=== PATIENT | female | born 1965 | race Caucasian/White ===

== ENCOUNTER 2018-04-25 11:11 | Day surgery (SDC) | payer OTHER ==
[~2018-04-25] VITALS: Ht 162.6 cm; Wt 79.7 kg
[~2018-04-25 11:11] MED LIST: ATOR1TAB21 PO; HYDR12CA PO; IBUPOTC PO; LIDOCAINE 2% INJ 100 MG/5 ML SDV (FOR ANES.) As Ordered ONE; LISI-538 PO; METF500T4 PO; OMEP40CA2 PO; PROPOFOL 200 MG/20 ML VIAL As Ordered ONE; ROPI1TAB PO
[2018-04-25] MEDS ORDERED: NS 1,000 ML IV ONE (11:45)
--- NOTE | 2018-04-25 12:22 | ROOR ---
Patient Name: Valeria Booth Procedure Date: 04/25/2018 12:07 PM Date of : 1965 Age: 53 Room: [facility] Gender: Female Note Status: Finalized Procedure: Upper GI endoscopy Indications: Heartburn, Nausea Providers: Hernan GARCIA MD Referring MD: DIOGENES SHETTY MD Requesting Provider: Medicines: Monitored Anesthesia Care Complications: No immediate complications. Procedure: Pre-Anesthesia Assessment: - The heart rate, respiratory rate, oxygen saturations, blood pressure, adequacy of pulmonary ventilation, and response to care were monitored throughout the procedure. The Endoscope was introduced through the mouth, and advanced to the third part of duodenum. The upper GI endoscopy was accomplished without difficulty. The patient tolerated the procedure well. Findings: The examined esophagus was normal. A small hiatal hernia was present. The entire examined stomach was normal. (large volume/compliant). The examined duodenum was normal. Impression: - Normal esophagus. - Normal stomach. Small hiatal hernia. - Normal examined duodenum. - No specimens collected. Recommendation: - Continue present medications. Hernan Garcia MD Hernan GARCIA MD 04/25/2018 12:22:03 PM This report has been signed electronically. Number of Addenda: 0 Note Initiated On: 04/25/2018 12:07 PM Estimated Blood Loss: Estimated blood loss: none.
--- NOTE | 2018-04-25 12:36 | ROOR ---
Patient Name: Valeria Booth Procedure Date: 04/25/2018 12:08 PM Date of : 1965 Age: 53 Room: [id number] Gender: Female Note Status: Finalized Procedure: Colonoscopy Indications: High risk colon cancer surveillance: Personal history of colonic polyps, Last colonoscopy: August 2014 Providers: Hernan GARCIA MD Referring MD: DIOGENES SHETTY MD Requesting Provider: Medicines: Monitored Anesthesia Care Complications: No immediate complications. Procedure: Pre-Anesthesia Assessment: - The heart rate, respiratory rate, oxygen saturations, blood pressure, adequacy of pulmonary ventilation, and response to care were monitored throughout the procedure. The Colonoscope was introduced through the anus and advanced to the cecum, identified by appendiceal orifice and ileocecal valve. The colonoscopy was performed without difficulty. The patient tolerated the procedure well. The quality of the bowel preparation was good. Findings: The perianal and digital rectal examinations were normal. Small Internal Hemorrhoids. The entire examined colon appeared normal on direct and retroflexion views. Impression: - Small Internal Hemorrhoids. - The entire examined colon is normal on direct and retroflexion views. - No specimens collected. Recommendation: - Repeat colonoscopy in 5 years for surveillance based on personal history of previous adenomatous polyps. Hernan Garcia MD Hernan GARCIA MD 04/25/2018 12:35:50 PM This report has been signed electronically. Number of Addenda: 0 Note Initiated On: 04/25/2018 12:08 PM Estimated Blood Loss: Estimated blood loss: none.
[2018-04-25 12:56] VITALS: BP 129/73
== END 2018-04-25 13:06 | disposition home or self-care (01) ==
LOC: M OPP 11:11
PROVIDERS: ATTEND Internal Medicine Gastroenterology
DX: Z86.010 Personal history of colon polyps (principal); K64.8 Other hemorrhoids; R12 Heartburn; R11.2 Nausea with vomiting, unspecified; K44.9 Diaphragmatic hernia without obstruction or gangrene; E11.9 Type 2 diabetes mellitus without complications; G47.30 Sleep apnea, unspecified; G43.909 Migraine, unspecified, not intractable, without status migrainosus; M79.7 Fibromyalgia; G89.29 Other chronic pain; I10 Essential (primary) hypertension; Z79.84 Long term (current) use of oral hypoglycemic drugs; Z79.899 Other long term (current) drug therapy; Z87.891 Personal history of nicotine dependence
CPT/HCPCS: 43235; G0105

== ENCOUNTER 2018-05-11 12:45 | Emergency (ER) | payer OTHER ==
[~2018-05-11] VITALS: Ht 162.6 cm; Wt 81.8 kg
[~2018-05-11 12:45] MED LIST changes: -LIDOCAINE 2% INJ 100 MG/5 ML SDV (FOR ANES.) As Ordered ONE; -PROPOFOL 200 MG/20 ML VIAL As Ordered ONE
[2018-05-11] MEDS: MORPHINE 4 MG/ML 1ML VIAL/SYRINGE (J2270) IV PRN ×2 (13:21→14:22)
--- NOTE | 2018-05-11 13:38 | REP ---
Clinical: Trauma. Technique: AP and lateral views of the left humerus. Findings: There is a transverse displaced fracture through the mid humeral shaft with approximately 15 mm of displacement and mild angulation at the fracture site. Overlying soft tissue swelling noted. No subcutaneous emphysema or foreign body. Impression: Transverse displaced fracture through the mid humeral shaft. Electronically Signed by Tanner Weir MD 05/11/2018 01:30 P
[2018-05-11] MEDS ORDERED: NORCOTAB PO (15:47)
[2018-05-11 16:05] VITALS: BP 128/60
[2018-05-11] MEDS ORDERED: NORCO, ANEXSIA 5/325MG TABLET (HYDROcodone/ACETAMINOPHEN) PO ONE (16:15)
== END 2018-05-11 16:18 | disposition home or self-care (01) ==
LOC: M ED 12:45 → EDBD 12:45 → M ED 16:18
DX: S42.322A Displaced transverse fracture of shaft of humerus, left arm, initial encounter for closed fracture (principal); W00.0XXA Fall on same level due to ice and snow, initial encounter; Y92.096 Garden or yard of other non-institutional residence as the place of occurrence of the external cause; I10 Essential (primary) hypertension; E11.9 Type 2 diabetes mellitus without complications; G25.81 Restless legs syndrome; F41.9 Anxiety disorder, unspecified; Z79.899 Other long term (current) drug therapy; Z79.84 Long term (current) use of oral hypoglycemic drugs; Z79.1 Long term (current) use of non-steroidal anti-inflammatories (NSAID)
CPT/HCPCS: 29105; 73060; 96374; 96376; 99284; J2270

== ENCOUNTER → 2020-05-17 | Outpatient (CLI) | payer OTHER ==
[~2020-05-17] MED LIST changes: +HYDR-3715 PO; +METF-838 PO; -METF500T4 PO; -OMEP40CA2 PO; +OMEP40CA97 PO; -ROPI1TAB PO; +ROPI1TAB3 PO
--- NOTE | 2020-05-20 00:17 | ECWPNPC ---
PATIENT NAME: DAVID STANLEY : 1965 GENDER: FEMALE VISIT DATE: 05/17/2020 DISCHARGE DATE: 05/17/20915 VISIT LOCKED DATE TIME: PHYSICIAN: BRYSON CARRERO RESOURCE: BRYSON CARRERO REASON FOR APPOINTMENT 1. RIGHT HIP AND LOWER BACK HISTORY OF PRESENT ILLNESS DEPRESSION SCREENING: PHQ-2 (2015 EDITION) LITTLE INTEREST OR PLEASURE IN DOING THINGS?NOT AT ALL FEELING DOWN, DEPRESSED, OR HOPELESS?NOT AT ALL TOTAL SCORE0 GENERAL: PLEASANT 55-YEAR-OLD FEMALE REFERRED BY [facility] TO EVALUATE CHRONIC LOW BACK PAIN. FELL ON ICE 2 YEARS AGO AND HAS HAD LOW BACK PAIN AND BILATERAL LEG PAIN RIGHT GREATER THAN LEFT SINCE INJURY. ATTENDED PHYSICAL THERAPY FOR 6 MONTHS WHICH ENDED A FEW MONTHS AGO AND PATIENT FOUND IT VERY HELPFUL BUT CONTINUES TO SUFFER WITH PAIN. DENIES BOWEL OR BLADDER INCONTINENCE. DENIES SADDLE PARESTHESIAS. ATTENDED PHYSICAL THERAPY WHICH ENDED IN MARCH 2020 AND PATIENT REPORT SOME SHORT-LIVED IMPROVEMENT. - - -. FALL RISK SCREENING: SCREENING :NO FALLS REPORTED IN THE LAST YEAR PAIN SCREENING: PATIENT HAS A COMPLAINT OF ACUTE OR CHRONIC PAIN :YES LOCATION OF PAIN:MID BACK, LOW BACK, LEFT HIP, RIGHT HIP INTENSITY OF PAIN (SCALE OF 1 TO 10):6 WHAT DOES YOUR PAIN FEEL LIKE:SHARP, TENDER, SORE NUMBNESS DURATION:CONTINOUS, CONSTANT, ALL DAY PAIN IS INCREASED BY:PROLONGED STANDING, OTHERS LAYING ON BACK , STANDING OR SITTING TOO LONG PAIN IS DECREASED BY:OTHERS HEAT AND ICE NURSING NOTE: - - -. PAIN CENTER INTAKE QUESTIONS: DO YOU HAVE A HISTORY OF MRSA? :NO DO YOU TAKE A BLOOD THINNERS? :NO DO YOU HAVE ANY BLEEDING DISORDERS? :NO ANY NEW NUMBNESS OR WEAKNESS IN YOUR LEGS OR ARMS? :NO ANY PACEMAKER,DEFIBRILLATOR, OR DORSAL COLUMN STIMULATOR? :NO DO YOU HAVE ANY RASHES OR OPEN SORES? :NO ARE YOU ALLERGIC TO IV DYE? :NO ARE YOU DIABETIC? :NO ANY NEW PROBLEMS WITH YOUR MEDICATIONS? :NO HAVE YOU RECEIVED A VACCINE IN THE PAST 30 DAYS? :NO DO YOU PLAN TO RECEIVE A VACCINE IN THE NEXT 21 DAYS? :NO DO YOU NEED ANY PRESCRIPTION? :NO DO YOU TAKE ANY IMMUNOSUPPRESSIVE MEDICATIONS? :NO CURRENT MEDICATIONS TAKING ACETAMINOPHEN 325 MG CAPSULE 1 CAPSULE NEEDED ORALLY EVERY 6 HRS TAKING AMLODIPINE BESYLATE 10 MG TABLET 1 TABLET ORALLY ONCE A DAY TAKING BUSPIRONE HCL 10 MG TABLET 1 TABLET ORALLY TWICE A DAY TAKING HYDROCODONE-ACETAMINOPHEN 5-325 MG TABLET 1 TABLET NEEDED ORALLY EVERY 6 HRS TAKING IBUPROFEN 200 MG TABLET 1 TABLET WITH FOOD OR MILK NEEDED ORALLY THREE TIMES A DAY TAKING LISINOPRIL 20 MG TABLET 1 TABLET ORALLY ONCE A DAY TAKING TIZANIDINE HCL 2 MG TABLET 1 TABLET NEEDED ORALLY THREE TIMES A DAY TAKING VOLTAREN 1 % GEL DIRECTED EXTERNALLY TAKING LIDOCAINE 5 % PATCH 1 PATCH REMOVE AFTER 12 HOURS EXTERNALLY ONCE A DAY TAKING DICLOFENAC 18 MG CAPSULE 1 CAPSULE NEEDED ORALLY THREE TIMES A DAY NOT-TAKING ATORVASTATIN CALCIUM 20 MG TABLET 1 TABLET ORALLY ONCE A DAY UNKNOWN OMEPRAZOLE 40 MG CAPSULE DELAYED RELEASE ORALLY UNKNOWN ROPINIROLE HCL 1 MG TABLET ORALLY UNKNOWN KEFLEX 500 MG CAPSULE 1 CAPSULE ORALLY EVERY 12 HRS MEDICATION LIST REVIEWED AND RECONCILED WITH THE PATIENT PAST MEDICAL HISTORY ANXIETY ARTHRITIS GERD HYPERLIPIDEMIA HYPERTENSION LOW BACK PAIN NEUROMUSCULAR DISORDEER HEADACHE ALLERGIES N.K.D.A. SURGICAL HISTORY ABLASION SECTION 3 SHOULDER ARTHROSCOPY FAMILY HISTORY FATHER: , DIAGNOSED WITH DIABETES, OTHER SPECIFIED CONDITIONS INFLUENCING HEALTH STATUS MOTHER: , DIABETES SON(S): ALIVE 3 SON(S) - HEALTHY. SOCIAL HISTORY GENERAL: TOBACCO USE ARE YOU A:NONSMOKER LATEX QUESTIONNAIRE LATEX ALLERGY : HAVE YOU EVER DEVELOPED ANY TYPE OF REACTION AFTER HANDLING LATEX PRODUCTS SUCH RUBBER GLOVES, CONDOMS, DIAPHRAGMS, BALLOONS, SOCKS, OR UNDERWEAR?NO LATEX ALLERGY : HAVE YOU EVER DEVELOPED ANY TYPE OF REACTION DURING OR AFTER DENTAL APPOINTMENT, VAGINAL/RECTAL EXAMINATION, SURGICAL PROCEDURE, OR ANY OTHER EXPOSURE?NO LATEX RISK : HAVE YOU EVER HAD ANY DIFFICULTY BREATHING OR HIVES AFTER EATING OR HANDLING ANY FRUITS, OR VEGETABLES; SUCH KIWI, BANANAS, STONE FRUITS, OR CHESTNUTSNO LATEX RISK : DO YOU HAVE A PREVIOUS PERSONAL HISTORY OF MORE THAN NINE SURGERIES, SPINA BIFIDA, OR REPEATED CATHERIZATIONS? NO LATEX RISK : ARE YOU FREQUENTLY EXPOSED TO LATEX PRODUCTS IN YOUR OCCUPATION?NO DATE ASKED : 05/17/2020 ALCOHOL USE: YES. ALCOHOL SCREENING DID YOU HAVE A DRINK CONTAINING ALCOHOL IN THE PAST YEAR?YES HOW MANY DRINKS DID YOU HAVE ON A TYPICAL DAY WHEN YOU WERE DRINKING IN THE PAST YEAR?3 OR 4 (1 POINT) HOW OFTEN DID YOU HAVE A DRINK CONTAINING ALCOHOL IN THE PAST YEAR?MONTHLY OR LESS (1 POINT) POINTS2 INTERPRETATIONNEGATIVE RECREATIONAL DRUG USE DRUG USE?NO LEARNING BARRIERS / SPECIAL NEEDS CHANGE FROM LAST VISIT?NO BARRIERS TO LEARNING?NO HEARING IMPAIRED?NO VISION IMPAIRED?YES :CORRECTIVE LENSES COGNITIVELY IMPAIRED?NO READINESS TO LEARN?YES LEARNING PREFERENCES?NO LEARNING CAPABILITIES PRESENT?YES EMOTIONAL BARRIERS?NO SPECIAL DEVICES?YES :CANE, WALKER NEEDED CLINICAL LAB CLERK NEEDED?NO HOSPITALIZATION/MAJOR DIAGNOSTIC PROCEDURE SEE ABOVE REVIEW OF SYSTEMS CONSTITUTIONAL: ANY RECENT FEVER NO . CHILLS NO . WEIGHT CHANGE OF UNKNOWN REASONS NO . MUSCULOSKELETAL: ANY UNUSUAL JOINT PAIN OR SWELLING NOT MENTIONED NO . SYSTEMIC LUPUS NO . ANY NEUROMUSCULAR DISORDER NOT MENTIONED NO . LYME DISEASE NO . GASTROENTEROLOGY: ANY NEW CHANGE IN BOWEL CONTROL? NO . HISTORY OF LIVER DISORDER NOT MENTIONED NO . HISTORY OF UNUSUAL ABDOMINAL PAIN OR CRAMPING NOT MENTIONED NO . NO CONSTIPATION. GENITOURINARY: ANY NEW CHANGE IN BLADDER CONTROL? NO . ANY RENAL/KIDNEY CONDITON NOT MENTIONED NO . NEUROLOGY: HISTORY OF TBI NOT MENTIONED NO . OTHER NEW NUMBNESS OR PAIN PATTERNS NOT MENTIONED NO . NEW ONSET DIZZINESS OR NEUROLOGICAL CHANGES NOT MENTIONED NO . HISTORY OF SEVERE HEADACHES NOT MENTIONED NO . HISTORY OF STROKE OR NEUROLOGICAL DISORDER NOT MENTIONED NO . CARDIOLOGY: HEART SURGERY NO . CONGESTIVE HEART FAILURE/FLUID OVERLOAD NOT MENTIONED NO . HISTORY OF CHEST PAIN,IRREGULAR HEART BEAT NOT MENTIONED NO . RESPIRATORY: SHORTNESS OF BREATH ON EXERTION, WHEEZES, UNUSUAL COUGH NOT MENTIONED NO . ENDOCRINOLOGY: ADRENAL GLAND OR THYROID DISORDERS NOT MENTIONED NO . UNUSUAL URINATION, DIZZINESS OR LETHARGY NOT MENTIONED NO . VITAL SIGNS WT 185 LBS, HT 64 IN, BMI 31.75 INDEX, BP 136/73 MM HG, HR 74 /MIN, RR 18 /MIN, TEMP 96.2 F, OXYGEN SAT % 98%, SAFE IN ENV? (Y/N) YEST.[place] VICENTE. EXAMINATION GENERAL EXAMINATION: GENERAL ALERT,NO DISTRESS . PSYCH AFFECT NORMAL . FACE:UNREMARKABLE. NECK:NO LYMPHADENOPATHY, SUPPLE. LUNGS: LUNG SOUNDS ARE CLEAR . HEART: HEART RATE REGULAR . MUSCULOSKELETAL: MST 5/5 BILAT. LOWER EXTREMITIES . LUMBAR: TENDERNESS BILAT. SIJ R>L. POSITIVE DIMAS'S TESTING OVER RIGHT LEG. DIAGNOSTIC TESTS REVIEWEDMRI L/S SPINE 09/26/2019. ASSESSMENTS SACROILIITIS - M46.1 (PRIMARY) TREATMENT SACROILIITIS NOTES: RIGHT SACROILLIAC JOINT BLOCK PRINTED AND REVIED POST PROCEDURES WITH PATIENT ALVINA VICENTE. PROCEDURE CODES FA211 ESTABILISHED PATIENT [facility] CHARGE DISPOSITION & COMMUNICATION FOLLOW UP POST PROCEDURE (REASON: RIGHT SACROILLIAC JOINT BLOCK) ELECTRONICALLY SIGNED BY JOSELYN DONNELLY ON 05/19/2020 AT 08:59 AM EST DISCLAIMER : THIS IS A VISIT SUMMARY EXTRACTED FROM THE [employer] [facility] CHART. IT IS NOT A COPY OF THE [employer] [facility] PROGRESS NOTE. DENIS
== END ==
LOC: M PAIN 08:15
PROVIDERS: ATTEND Nurse Practitioner Family
DX: M46.1 Sacroiliitis, not elsewhere classified (principal); G89.29 Other chronic pain; Z86.59 Personal history of other mental and behavioral disorders; Z79.899 Other long term (current) drug therapy

== ENCOUNTER → 2020-05-22 | Outpatient (CLI) | payer OTHER ==
[~2020-05-22] MED LIST changes: -LISI-538 PO; +LISI20TA33 PO
== END ==
LOC: M LABSMTC 11:23
PROVIDERS: ATTEND Anesthesiology
DX: Z20.822 Contact with and (suspected) exposure to COVID-19 (principal)

== ENCOUNTER → 2020-05-27 | Outpatient (CLI) | payer OTHER ==
[~2020-05-27] MED LIST changes: +BUPIVACAINE HCL 0.25% 30ML VIAL As Ordered ONE; +ISOVUE-M 300 61% 15ML VIAL As Ordered ONE; +LIDOCAINE 1% SDV 30ML VIAL As Ordered ONE; +TRIAMCINOLONE ACETONIDE SUSP 40 MG/ML VIAL (J3301) As Ordered ONE; +diazePAM 5MG TABLET As Ordered ONE; +oxyCODONE 5MG TAB As Ordered ONE
--- NOTE | 2020-05-27 15:22 | REP ---
INDICATION: RIGHT SACROILIAC JOINT BLOCK. COMPARISON: None. TECHNIQUE: A single view. 35.4 seconds of fluoroscopy time is reported. FINDINGS: A single last image hold fluoroscopically obtained spot radiograph of the right SI joint document needle position and contrast associated with injection procedure. IMPRESSION: Procedural imaging. <Electronically signed by Eusebio Donnelly > 05/27/20 [id number]
--- NOTE | 2020-05-29 00:23 | ECWPNPC ---
PATIENT NAME: DAVID STANLEY : 1965 GENDER: FEMALE VISIT DATE: 05/27/2020 DISCHARGE DATE: 05/27/20 1519 VISIT LOCKED DATE TIME: PHYSICIAN: SITA SIMMS MD RESOURCE: SITA SIMMS MD REASON FOR APPOINTMENT 1. RIGHT SACROILIAC JOINT BLOCK HISTORY OF PRESENT ILLNESS GENERAL: -. FALL RISK SCREENING: SCREENING :NO FALLS REPORTED IN THE LAST YEAR PAIN SCREENING: PATIENT HAS A COMPLAINT OF ACUTE OR CHRONIC PAIN :YES LOCATION OF PAIN:LEFT HIP, RIGHT HIP INTENSITY OF PAIN (SCALE OF 1 TO 10):6 WHAT DOES YOUR PAIN FEEL LIKE:CONTINOUS, OTHER PRESSURE DURATION:CONSTANT PAIN IS INCREASED BY:ACTIVITIES, PROLONGED STANDING WALKING, SITTING PAIN IS DECREASED BY:USE OF PAIN MEDICATIONS, OTHERS SOMETIMES HEAT & REST NURSING NOTE: -. PAIN CENTER INTAKE QUESTIONS: DO YOU HAVE A HISTORY OF MRSA? :NO DO YOU TAKE A BLOOD THINNERS? :NO DO YOU HAVE ANY BLEEDING DISORDERS? :NO ANY NEW NUMBNESS OR WEAKNESS IN YOUR LEGS OR ARMS? :NO ANY PACEMAKER,DEFIBRILLATOR, OR DORSAL COLUMN STIMULATOR? :NO DO YOU HAVE ANY RASHES OR OPEN SORES? :NO ARE YOU ALLERGIC TO IV DYE? :NO ARE YOU DIABETIC? :NO ANY NEW PROBLEMS WITH YOUR MEDICATIONS? :NO HAVE YOU RECEIVED A VACCINE IN THE PAST 30 DAYS? :NO DO YOU PLAN TO RECEIVE A VACCINE IN THE NEXT 21 DAYS? :NO DO YOU TAKE ANY IMMUNOSUPPRESSIVE MEDICATIONS? :NO ANY HISTORY OF SEIZURES? :NO ANY HISTORY OF CARDIAC ISSUES OR EVENTS? :NO DO YOU HAVE SLEEP APNEA? :YES DO YOU WEAR A CPAP?NO ANY RECENT HEAD INJURY? :NO DO YOU HAVE ANY NEW INFECTIONS? :NO IS THERE A CHANCE YOU COULD BE ? :NO ARE YOU BREAST FEEDING? :NO WHEN DID YOU LAST EAT? : 0700 WHEN DID YOU LAST DRINK? : 1030 WHAT DID YOU LAST DRINK? : WATER NAME OF PERSON DRIVING YOU HOME? : MISAEL- SON DO YOU HAVE ANY OTHER QUESTIONS OR CONCERNS? : - CURRENT MEDICATIONS TAKING AMLODIPINE BESYLATE 10 MG TABLET 1 TABLET ORALLY ONCE A DAY, NOTES: 05/26/20 2130 TAKING BUSPIRONE HCL 10 MG TABLET 1 TABLET ORALLY ONCE A DAY TAKING IBUPROFEN 200 MG TABLET 2 TABLETS ORALLY ONCE A DAY TAKING LISINOPRIL 20 MG TABLET 1 TABLET ORALLY ONCE A DAY, NOTES: 05/26/202129 TAKING TIZANIDINE HCL 2 MG TABLET 1 TABLET NEEDED ORALLY THREE TIMES A DAY, NOTES: 05/26/202129 TAKING VOLTAREN 1 % GEL DIRECTED EXTERNALLY TAKING LIDOCAINE 5 % PATCH 1 PATCH REMOVE AFTER 12 HOURS EXTERNALLY ONCE A DAY, NOTES: 05/26/20 TAKING TYLENOL EXTRA STRENGTH 500 MG TABLET 1 TABLET NEEDED ORALLY EVERY 6 HRS TAKING ROPINIROLE HCL 2 MG TABLET 1 TABLET 1 TO 3 HOURS BEFORE BEDTIME ORALLY ONCE A DAY TAKING VITAMIN D 50 MCG (1999) TABLET 1 TABLET ORALLY ONCE A DAY TAKING OMEPRAZOLE 20 MG TABLET DELAYED RELEASE ORALLY BID NOT-TAKING ACETAMINOPHEN 325 MG CAPSULE 1 CAPSULE NEEDED ORALLY EVERY 6 HRS NOT-TAKING HYDROCODONE-ACETAMINOPHEN 5-325 MG TABLET 1 TABLET NEEDED ORALLY EVERY 6 HRS NOT-TAKING DICLOFENAC 18 MG CAPSULE 1 CAPSULE NEEDED ORALLY THREE TIMES A DAY NOT-TAKING ATORVASTATIN CALCIUM 20 MG TABLET 1 TABLET ORALLY ONCE A DAY NOT-TAKING ROPINIROLE HCL 1 MG TABLET ORALLY NOT-TAKING KEFLEX 500 MG CAPSULE 1 CAPSULE ORALLY EVERY 12 HRS MEDICATION LIST REVIEWED AND RECONCILED WITH THE PATIENT PAST MEDICAL HISTORY ANXIETY ARTHRITIS GERD HYPERLIPIDEMIA HYPERTENSION LOW BACK PAIN NEUROMUSCULAR DISORDEER HEADACHE ALLERGIES N.K.D.A. SOCIAL HISTORY GENERAL: TOBACCO USE ARE YOU A:NONSMOKER LATEX QUESTIONNAIRE LATEX ALLERGY : HAVE YOU EVER DEVELOPED ANY TYPE OF REACTION AFTER HANDLING LATEX PRODUCTS SUCH RUBBER GLOVES, CONDOMS, DIAPHRAGMS, BALLOONS, SOCKS, OR UNDERWEAR?NO LATEX ALLERGY : HAVE YOU EVER DEVELOPED ANY TYPE OF REACTION DURING OR AFTER DENTAL APPOINTMENT, VAGINAL/RECTAL EXAMINATION, SURGICAL PROCEDURE, OR ANY OTHER EXPOSURE?NO LATEX RISK : HAVE YOU EVER HAD ANY DIFFICULTY BREATHING OR HIVES AFTER EATING OR HANDLING ANY FRUITS, OR VEGETABLES; SUCH KIWI, BANANAS, STONE FRUITS, OR CHESTNUTSNO LATEX RISK : DO YOU HAVE A PREVIOUS PERSONAL HISTORY OF MORE THAN NINE SURGERIES, SPINA BIFIDA, OR REPEATED CATHERIZATIONS? NO LATEX RISK : ARE YOU FREQUENTLY EXPOSED TO LATEX PRODUCTS IN YOUR OCCUPATION?NO DATE ASKED : 05/27/2020 ALCOHOL USE: YES. ALCOHOL SCREENING DID YOU HAVE A DRINK CONTAINING ALCOHOL IN THE PAST YEAR?YES HOW MANY DRINKS DID YOU HAVE ON A TYPICAL DAY WHEN YOU WERE DRINKING IN THE PAST YEAR?3 OR 4 (1 POINT) HOW OFTEN DID YOU HAVE A DRINK CONTAINING ALCOHOL IN THE PAST YEAR?MONTHLY OR LESS (1 POINT) POINTS2 INTERPRETATIONNEGATIVE RECREATIONAL DRUG USE DRUG USE?NO LEARNING BARRIERS / SPECIAL NEEDS CHANGE FROM LAST VISIT?NO BARRIERS TO LEARNING?NO HEARING IMPAIRED?NO VISION IMPAIRED?YES :CORRECTIVE LENSES COGNITIVELY IMPAIRED?NO READINESS TO LEARN?YES LEARNING PREFERENCES?NO LEARNING CAPABILITIES PRESENT?YES EMOTIONAL BARRIERS?NO SPECIAL DEVICES?YES :CANE, WALKER NEEDED RADIO TALK SHOW HOST NEEDED?NO VITAL SIGNS WT 186.4 LBS, HT 64 IN, BMI 31.99 INDEX, BP 114/66 MM HG, HR 83 /MIN, RR 18 /MIN, TEMP 97.4 F, OXYGEN SAT % 95%, SAFE IN ENV? (Y/N) YES, NA INITIALS SC 13:13, REVIEWED BY: [facility]. KRIS KRISHNAN. EXAMINATION GENERAL EXAMINATION: THE PATIENT IS ALERT, ORIENTED TIMES THREE AND COOPERATIVE. LUNGS ARE CLEAR TO AUSCULTATION. HEART SHOWS REGULAR RHYTHM, NO MURMURS AND NO GALLOPS. ASSESSMENTS SACROILIITIS, NOT ELSEWHERE CLASSIFIED - M46.1 (PRIMARY) TREATMENT SACROILIITIS, NOT ELSEWHERE CLASSIFIED [facility] FLUORO GUIDANCE (PAIN)[id number] SALINE LOCKPETRAS,ANG R 05/27/2020 2:06:36 PM > 22G PLACED INTO LEFT AC ON FIRST ATTEMPT, FLUSHING WELL. PETRAS,ANG R 05/27/2020 3:13:53 PM > IV REMOVED, CATHETER TIP INTACT. DSD APPLIED MEDICATION: VALIUM TAB 10MG ORALLY (DIAZEPAM)MAULIK WEBBER 05/27/2020 1:47:52 PM > VERIFIED. KRIS,ANG R 05/27/2020 1:52:14 PM > ADMINISTERED MEDICATION: OXYCODONE HCL TAB 10MG ORALLYMAULIK WEBBER 05/27/2020 1:48:08 PM > VERIFIED. GONZALEZAS,ANG R 05/27/2020 1:58:45 PM > ADMINISTERED COMPLETION OF PROCEDURAL VISIT WHEN MEETS CRITERIAPETRAS,ANG R 05/27/2020 3:14:59 PM > CRITERIA MET PROCEDURES PAIN NURSING RECORD PROCEDURE IN ROOM 1431, PHYSICIAN IN ROOM 1446, START 1449, FINISH 1452, PHYSICIAN OUT OF ROOM 1453, OUT OF ROOM 1458, ECG NORMAL SINUS, PATIENT SHIELDED YES, SAFETY STRAP YES, PREP CHLOROPREP Brien PONCE RN, DRESSING TEGADERM DR. SIMMS LOC: MOISES PONCEIL R 05/27/2020 2:50:36 PM > 1. ALERT, ORIENTED RESP: PETRKATHERINEANG R 05/27/2020 2:50:39 PM > 1. REGULAR, NO DYSPNEA COLOR: PETRKATHERINEANG R 05/27/2020 2:50:43 PM > 1. PINK SKIN: PETRAKTHERINEANG R 05/27/2020 2:50:47 PM > 1. WARM, DRY POSITION: PETRKATHERINEANG R 05/27/2020 2:50:53 PM > 1. PRONE VITALS: PETRKATHERINEANG R 05/27/2020 2:34:59 PM > 127/80, 68, 16, 96% PETRAS,ANG R 05/27/2020 2:41:53 PM > 124/74, 67, 18, 94% PETRAS,ANG R 05/27/2020 2:54:49 PM > 122/75, 63, 16, 95% PETRAS,ANG R 05/27/2020 3:04:29 PM > 135/71, 66, 18, 97% COMPLETION OF PROCEDURE APPOINTMENT: POST PAIN 2, DRESSING SITE DRY AND INTACT, IV DISCONTINUED, SITE CLEAR, CATHETER INTACT, GAIT STEADY, TEACHING COMPLETED, PATIENT ACKNOWLEDGES UNDERSTANDING YES, PROCEDURE APPOINTMENT COMPLETED AT 1515 BY: Brien PONCE RN PRE PROCEDURE DIAGNOSIS SACROILITIS, SACROILIAC JOINT DYSFUNCTION POST PROCEDURE DIAGNOSIS SACROILIITIS, SACROILIAC JOINT DYSFUNCTION PROCEDURE RIGHT SACROILIAC JOINT BLOCK SURGEON DR. SITA SIMMS [facility] ADMINISTRATOR NONE ANESTHESIA LOCAL PRE PROCEDURE NOTE THE PATIENT HAS A HISTORY OF CHRONIC LOW BACK PAIN. I EVALUATED THE PATIENT AND REVIEWED THE CHART. I WENT OVER THE RISKS, BENEFITS AND ALTERNATIVES ASSOCIATED WITH THIS PROCEDURE. I DISCUSSED THAT THE USE OF STEROIDS MAY CONTRIBUTE TO IMMUNOSUPPRESSION OF THE PATIENT'S BODY AGAINST INFECTIONS SUCH COVID-19. THE PATIENT IS AWARE OF THE POTENTIAL COMPLICATIONS ASSOCIATED WITH THIS VIRUS, INCLUDING, BUT NOT LIMITED, . THE PATIENT WOULD LIKE TO PROCEED AND GIVES CONSENT TO PERFORM THE PROCEDURE. THE PATIENT DENIES UNEXPLAINABLE WEIGHT LOSS, FEVER, CHILLS OR NEW CHANGES IN URINARY OR BOWEL CONTROL. THE PATIENT IS COVID-19 NEGATIVE. DESCRIPTION OF PROCEDURE THE PATIENT WAS BROUGHT TO THE PROCEDURE ROOM AND PLACED IN THE PRONE POSITION. THE LUMBOSACRAL AREA WAS CLEANED WITH CHLORAPREP SOLUTION AND DRAPED ASEPTICALLY. THE PROCEDURE WAS DONE UNDER STERILE CONDITIONS. A TIMEOUT WAS PERFORMED WHERE THE CONSENTED SITE WAS VERIFIED WITH EVERYONE IN THE ROOM. UNDER FLUOROSCOPIC GUIDANCE, THE TARGET POINT WAS SELECTED AT THE LOWER BORDER OF THE RIGHT SACROILIAC JOINT. TARGET POINT WAS SELECTED AFTER MEDIAL ROTATION AND TILT OF THE MAGNIFIER OR THE C-ARM. I CONFIRMED AGAIN THE SITE OF THE TARGET. LIDOCAINE 0.5% WAS USED TO NUMB THE SKIN AND THE SUBCUTANEOUS TISSUE BELOW IT. SPINAL NEEDLE, 22-GAUGE, WAS ADVANCED UNDER FLUOROSCOPIC GUIDANCE AND FOLLOWING PATIENT FEEDBACK UNTIL THE TARGET WAS TOUCHED. THE POSITION OF THE NEEDLE WAS VERIFIED WITH AP AND OBLIQUE VIEWS. AFTER PROPER POSITION OF THE NEEDLE WAS ACHIEVED, ISOVUE-M DYE 30%, 0.1 ML, WAS INJECTED SHOWING ADEQUATE SPREAD OF THE DYE. KENALOG 40 MG WAS INJECTED. THEN, A SOLUTION OF 3.0 ML OF BUPIVACAINE 0.125% WAS USED TO FLUSH THE NEEDLE. THE MEDICATIONS WERE VERIFIED WITH THE NURSE. THERE WAS NO EVIDENCE OF BLOOD, PARESTHESIA OR CEREBROSPINAL FLUID DURING THE PROCEDURE. THE PATIENT WAS SENT TO THE RECOVERY ROOM. THE PATIENT WAS MOVING THE EXTREMITIES AND DOING WELL. THERE WERE NO COMPLICATIONS DURING THE PROCEDURE. ESTIMATED BLOOD LOSS WAS LESS THAN 5 ML. FLUOROSCOPIC TIME WAS 35 SECONDS. POST PROCEDURE NOTE THE PATIENT WILL BE SEEN IN A FOLLOW UP IN THE NEXT FEW WEEKS. I AM LOOKING FOR LONG LASTING RELIEF FOR THE PATIENT WITH THIS INTERVENTION. INSTRUCTIONS WERE GIVEN, QUESTIONS WERE ANSWERED AND THE PATIENT EXPRESSED UNDERSTANDING AND AGREES WITH THE PAIN. I, ANKUR PADRON, DOCUMENTED THE ABOVE INFORMATION ACTING A SCRIBE FOR DR. SIMMS. I HAVE REVIEWED THE ABOVE DOCUMENT WRITTEN BY ANKUR PADRON, FUR TRAPPER, AND I VERIFY THAT IT IS ACCURATE. PROCEDURE CODES 02953 INJECT SACROILIAC JOINT, MODIFIERS: RT DISPOSITION & COMMUNICATION FOLLOW UP FOLLOW UP WITH BOOT AND SHOE REPAIRMAN (REASON: POST RIGHT SACROILIAC JOINT BLOCK) ELECTRONICALLY SIGNED BY SITA SIMMS MD, MD ON 05/28/2020 AT 04:06 PM EST DISCLAIMER : THIS IS A VISIT SUMMARY EXTRACTED FROM THE [employer] CHART. IT IS NOT A COPY OF THE [employer] PROGRESS NOTE. DENIS
== END ==
LOC: M PAIN 13:00
PROVIDERS: ATTEND Anesthesiology
DX: M46.1 Sacroiliitis, not elsewhere classified (principal); G47.30 Sleep apnea, unspecified; K21.9 Gastro-esophageal reflux disease without esophagitis; Z86.59 Personal history of other mental and behavioral disorders; Z79.899 Other long term (current) drug therapy
CPT/HCPCS: G0260; J3301; Q9967

== ENCOUNTER → 2020-06-10 | Outpatient (CLI) | payer OTHER ==
[~2020-06-10] MED LIST changes: -BUPIVACAINE HCL 0.25% 30ML VIAL As Ordered ONE; -ISOVUE-M 300 61% 15ML VIAL As Ordered ONE; -LIDOCAINE 1% SDV 30ML VIAL As Ordered ONE; -TRIAMCINOLONE ACETONIDE SUSP 40 MG/ML VIAL (J3301) As Ordered ONE; -diazePAM 5MG TABLET As Ordered ONE; -oxyCODONE 5MG TAB As Ordered ONE
--- NOTE | 2020-06-16 03:27 | ECWPNPC ---
PATIENT NAME: DAVID STANLEY : 1965 GENDER: FEMALE VISIT DATE: 06/10/2020 DISCHARGE DATE: 06/10/20 1523 VISIT LOCKED DATE TIME: PHYSICIAN: BRYSON CARRERO RESOURCE: BRYSON CARRERO REASON FOR APPOINTMENT 1. POST RIGHT SACROILIAC JOINT BLOCK HISTORY OF PRESENT ILLNESS GENERAL: HERE-FOR POST PROCEDURE F/U.DOING WELL POST PROCEDURE.HAVING A BETTER TIME WITH ACTIVITIES OF DAILY LIVING. FALL RISK SCREENING: SCREENING :NO FALLS REPORTED IN THE LAST YEAR PAIN SCREENING: PATIENT HAS A COMPLAINT OF ACUTE OR CHRONIC PAIN :YES LOCATION OF PAIN:LOW BACK RIGHT SIDE INTENSITY OF PAIN (SCALE OF 1 TO 10):3 WHAT DOES YOUR PAIN FEEL LIKE:STABBING, TENDER, THROBBING, SORE DURATION:INTERMITTENT PAIN IS INCREASED BY:ACTIVITIES, PROLONGED STANDING ANYTHING TOO LONG PAIN IS DECREASED BY:USE OF PAIN MEDICATIONS NURSING NOTE: -. PAIN CENTER INTAKE QUESTIONS: DO YOU HAVE A HISTORY OF MRSA? :NO DO YOU TAKE A BLOOD THINNERS? :NO DO YOU HAVE ANY BLEEDING DISORDERS? :NO ANY NEW NUMBNESS OR WEAKNESS IN YOUR LEGS OR ARMS? :NO ANY PACEMAKER,DEFIBRILLATOR, OR DORSAL COLUMN STIMULATOR? :NO DO YOU HAVE ANY RASHES OR OPEN SORES? :NO ARE YOU ALLERGIC TO IV DYE? :NO ARE YOU DIABETIC? :NO PRE DIABETIC ANY NEW PROBLEMS WITH YOUR MEDICATIONS? :NO HAVE YOU RECEIVED A VACCINE IN THE PAST 30 DAYS? :NO DO YOU PLAN TO RECEIVE A VACCINE IN THE NEXT 21 DAYS? :NO DO YOU NEED ANY PRESCRIPTION? :NO DO YOU TAKE ANY IMMUNOSUPPRESSIVE MEDICATIONS? :NO CURRENT MEDICATIONS TAKING AMLODIPINE BESYLATE 10 MG TABLET 1 TABLET ORALLY ONCE A DAY TAKING BUSPIRONE HCL 10 MG TABLET 1 TABLET ORALLY ONCE A DAY TAKING IBUPROFEN 200 MG TABLET 2 TABLETS ORALLY ONCE A DAY TAKING LISINOPRIL 20 MG TABLET 1 TABLET ORALLY ONCE A DAY TAKING TIZANIDINE HCL 2 MG TABLET 1 TABLET NEEDED ORALLY THREE TIMES A DAY TAKING VOLTAREN 1 % GEL DIRECTED EXTERNALLY TAKING LIDOCAINE 5 % PATCH 1 PATCH REMOVE AFTER 12 HOURS EXTERNALLY ONCE A DAY TAKING TYLENOL EXTRA STRENGTH 500 MG TABLET 1 TABLET NEEDED ORALLY EVERY 6 HRS TAKING ROPINIROLE HCL 2 MG TABLET 1 TABLET 1 TO 3 HOURS BEFORE BEDTIME ORALLY ONCE A DAY TAKING VITAMIN D 50 MCG (1999 UT) TABLET 1 TABLET ORALLY ONCE A DAY TAKING OMEPRAZOLE 20 MG TABLET DELAYED RELEASE ORALLY BID NOT-TAKING ACETAMINOPHEN 325 MG CAPSULE 1 CAPSULE NEEDED ORALLY EVERY 6 HRS NOT-TAKING HYDROCODONE-ACETAMINOPHEN 5-325 MG TABLET 1 TABLET NEEDED ORALLY EVERY 6 HRS NOT-TAKING DICLOFENAC 18 MG CAPSULE 1 CAPSULE NEEDED ORALLY THREE TIMES A DAY NOT-TAKING ATORVASTATIN CALCIUM 20 MG TABLET 1 TABLET ORALLY ONCE A DAY NOT-TAKING ROPINIROLE HCL 1 MG TABLET ORALLY NOT-TAKING KEFLEX 500 MG CAPSULE 1 CAPSULE ORALLY EVERY 12 HRS MEDICATION LIST REVIEWED AND RECONCILED WITH THE PATIENT PAST MEDICAL HISTORY ANXIETY ARTHRITIS GERD HYPERLIPIDEMIA HYPERTENSION LOW BACK PAIN NEUROMUSCULAR DISORDEER HEADACHE ALLERGIES N.K.D.A. SOCIAL HISTORY GENERAL: TOBACCO USE ARE YOU A:NONSMOKER LATEX QUESTIONNAIRE LATEX ALLERGY : HAVE YOU EVER DEVELOPED ANY TYPE OF REACTION AFTER HANDLING LATEX PRODUCTS SUCH RUBBER GLOVES, CONDOMS, DIAPHRAGMS, BALLOONS, SOCKS, OR UNDERWEAR?NO LATEX ALLERGY : HAVE YOU EVER DEVELOPED ANY TYPE OF REACTION DURING OR AFTER DENTAL APPOINTMENT, VAGINAL/RECTAL EXAMINATION, SURGICAL PROCEDURE, OR ANY OTHER EXPOSURE?NO LATEX RISK : HAVE YOU EVER HAD ANY DIFFICULTY BREATHING OR HIVES AFTER EATING OR HANDLING ANY FRUITS, OR VEGETABLES; SUCH KIWI, BANANAS, STONE FRUITS, OR CHESTNUTSNO LATEX RISK : DO YOU HAVE A PREVIOUS PERSONAL HISTORY OF MORE THAN NINE SURGERIES, SPINA BIFIDA, OR REPEATED CATHERIZATIONS? NO LATEX RISK : ARE YOU FREQUENTLY EXPOSED TO LATEX PRODUCTS IN YOUR OCCUPATION?NO DATE ASKED : 06/10/2020 ALCOHOL USE: YES. ALCOHOL SCREENING DID YOU HAVE A DRINK CONTAINING ALCOHOL IN THE PAST YEAR?YES HOW MANY DRINKS DID YOU HAVE ON A TYPICAL DAY WHEN YOU WERE DRINKING IN THE PAST YEAR?3 OR 4 (1 POINT) HOW OFTEN DID YOU HAVE A DRINK CONTAINING ALCOHOL IN THE PAST YEAR?MONTHLY OR LESS (1 POINT) POINTS2 INTERPRETATIONNEGATIVE RECREATIONAL DRUG USE DRUG USE?NO LEARNING BARRIERS / SPECIAL NEEDS CHANGE FROM LAST VISIT?NO BARRIERS TO LEARNING?NO HEARING IMPAIRED?NO VISION IMPAIRED?YES :CORRECTIVE LENSES COGNITIVELY IMPAIRED?NO READINESS TO LEARN?YES LEARNING PREFERENCES?NO LEARNING CAPABILITIES PRESENT?YES EMOTIONAL BARRIERS?NO SPECIAL DEVICES?YES :CANE, WALKER NEEDED INSIDE CHANNEL ACCOUNT MANAGER NEEDED?NO REVIEW OF SYSTEMS CONSTITUTIONAL: ANY RECENT FEVER NO . CHILLS NO . WEIGHT CHANGE OF UNKNOWN REASONS NO . GASTROENTEROLOGY: NEW UNEXPLAINABLE CHANGES IN BOWEL CONTROL NO . CONSTIPATION NO . GENITOURINARY: ANY NEW CHANGE IN BLADDER CONTROL? NO . NEUROLOGY: NEW ONSET DIZZINESS OR NEUROLOGICAL CHANGES NOT MENTIONED NO . NEW NUMBNESS OR PAIN PATTERNS NOT MENTIONED AND PERTINENT TO TODAY'S VISIT NO . CARDIOLOGY: NEW CHEST PRESSURE NO . PATIENT DENIES NO . RESPIRATORY: UNEXPLAINABLE COUGH NO . NEW SHORTNESS OF BREATH NO . VITAL SIGNS WT 187 LBS, HT 64 IN, BMI 32.09 INDEX, BP 119/56 MM HG, HR 68 /MIN, RR 18 /MIN, TEMP 95.1 F, OXYGEN SAT % 97%, SAFE IN ENV? (Y/N) [employer] V[employer]. EXAMINATION GENERAL EXAMINATION: GENERALAWAKE,ALERT ,PLEASANT . PSYCHAFFECT NORMAL . LUNGS:LUNG GODDARD ARE CLEAR TO AUSCULTATION BILATERALLY. GOOD MOVEMENT OF AIR . HEART:S1, S2 IN A REGULAR RATE AND RHYTHM. NO SIGNIFICANT MURMURS, RUBS OR GALLOPS NOTED . ASSESSMENTS SACROILIITIS, NOT ELSEWHERE CLASSIFIED - M46.1 (PRIMARY) OTHER CHRONIC PAIN - G89.29 TREATMENT OTHER CHRONIC PAIN PAIN PROCEDURE LOGDATE OF PROCEDURE1PROCEDURE:RIGHT SACROILIAC JOINT BLOCKAMOUNT OF PRE SEDATEVALIUM 10MG, OXYCODONE 10MGRESULT:MARKED REDUCTION IN PAIN CONTINUES TODAY PROCEDURE CODES FA211 ESTABILISHED PATIENT [facility] CHARGE DISPOSITION & COMMUNICATION FOLLOW UP 6-8 WKS F/U (REASON: LBP/DID WELL AFTER RIGHT SIJ) ELECTRONICALLY SIGNED BY JOSELYN DONNELLY ON 06/15/2020 AT 08:19 PM EST DISCLAIMER : THIS IS A VISIT SUMMARY EXTRACTED FROM THE [employer] CHART. IT IS NOT A COPY OF THE [employer] PROGRESS NOTE. MTDD
== END ==
LOC: M PAIN 14:45
PROVIDERS: ATTEND Nurse Practitioner Family
DX: M46.1 Sacroiliitis, not elsewhere classified (principal); G89.29 Other chronic pain; R73.03 Prediabetes; K21.9 Gastro-esophageal reflux disease without esophagitis; Z86.59 Personal history of other mental and behavioral disorders; Z79.899 Other long term (current) drug therapy

== ENCOUNTER → 2020-08-20 | Outpatient (CLI) | payer OTHER ==
--- NOTE | 2020-08-24 04:58 | ECWPNPC ---
PATIENT NAME: DAVID STANLEY : 1965 GENDER: FEMALE VISIT DATE: 08/20/2020 DISCHARGE DATE: 08/20/20 1139 VISIT LOCKED DATE TIME: PHYSICIAN: BRYSON CARRERO RESOURCE: BRYSON CARRERO REASON FOR APPOINTMENT 1. LBP/DID WELL AFTER RIGHT SIJ HISTORY OF PRESENT ILLNESS GENERAL: HERE FOR FOLLOW-UP OF CHRONIC LOW BACK PAIN. HAS BEEN HAVING SIGNIFICANT INCREASE IN RIGHT LOW BACK PAIN OVER THE PAST COUPLE OF WEEKS. HAS RESPONDED WELL TO RIGHT SACROILIAC JOINT BLOCK IN THE PAST. ALSO SUFFERS FROM FIBROMYALGIA. COMPLAINING OF LEFT UPPER THORACIC PAIN AND BILATERAL KNEE PAIN. REVIEWED MRI OF THE LS-SPINE AND DISCUSSED TREATMENT PLAN. -. FALL RISK SCREENING: SCREENING : NO FALLS REPORTED IN THE LAST YEAR. PAIN SCREENING: PATIENT HAS A COMPLAINT OF ACUTE OR CHRONIC PAIN :YES LOCATION OF PAIN:LOW BACK INTENSITY OF PAIN (SCALE OF 1 TO 10):7 WHAT DOES YOUR PAIN FEEL LIKE:SHARP, THROBBING, SHOOTING DURATION:CONTINOUS, CONSTANT, ALL DAY PAIN IS INCREASED BY:ACTIVITIES, OTHERS WEATHER PAIN IS DECREASED BY:USE OF PAIN MEDICATIONS, OTHERS RESTING, PATCHES NURSING NOTE: -. PAIN CENTER INTAKE QUESTIONS: DO YOU HAVE A HISTORY OF MRSA? :NO DO YOU TAKE A BLOOD THINNERS? :NO DO YOU HAVE ANY BLEEDING DISORDERS? :NO ANY NEW NUMBNESS OR WEAKNESS IN YOUR LEGS OR ARMS? :NO ANY PACEMAKER,DEFIBRILLATOR, OR DORSAL COLUMN STIMULATOR? :NO DO YOU HAVE ANY RASHES OR OPEN SORES? :NO ARE YOU ALLERGIC TO IV DYE? :NO ARE YOU DIABETIC? :NO PRE DIABETIC ANY NEW PROBLEMS WITH YOUR MEDICATIONS? :NO HAVE YOU RECEIVED A VACCINE IN THE PAST 30 DAYS? :YES 1ST COVID 07/21/2020 DO YOU PLAN TO RECEIVE A VACCINE IN THE NEXT 21 DAYS? :NO DO YOU NEED ANY PRESCRIPTION? :NO DO YOU TAKE ANY IMMUNOSUPPRESSIVE MEDICATIONS? :NO CURRENT MEDICATIONS TAKING AMLODIPINE BESYLATE 10 MG TABLET 1 TABLET ORALLY ONCE A DAY TAKING BUSPIRONE HCL 10 MG TABLET 1 TABLET ORALLY ONCE A DAY TAKING IBUPROFEN 400 MG TABLET 2 TABLETS ORALLY ONCE A DAY TAKING LISINOPRIL 20 MG TABLET 1 TABLET ORALLY ONCE A DAY TAKING TIZANIDINE HCL 2 MG TABLET 1 TABLET NEEDED ORALLY THREE TIMES A DAY TAKING VOLTAREN 1 % GEL DIRECTED EXTERNALLY TAKING LIDOCAINE 5 % PATCH 1 PATCH REMOVE AFTER 12 HOURS EXTERNALLY ONCE A DAY TAKING TYLENOL EXTRA STRENGTH 500 MG TABLET 1 TABLET NEEDED ORALLY EVERY 6 HRS TAKING ROPINIROLE HCL 2 MG TABLET 1 TABLET 1 TO 3 HOURS BEFORE BEDTIME ORALLY ONCE A DAY TAKING VITAMIN D 50 MCG (2000 UT) TABLET 1 TABLET ORALLY ONCE A DAY TAKING OMEPRAZOLE 20 MG TABLET DELAYED RELEASE ORALLY BID NOT-TAKING ACETAMINOPHEN 325 MG CAPSULE 1 CAPSULE NEEDED ORALLY EVERY 6 HRS NOT-TAKING HYDROCODONE-ACETAMINOPHEN 5-325 MG TABLET 1 TABLET NEEDED ORALLY EVERY 6 HRS NOT-TAKING DICLOFENAC 18 MG CAPSULE 1 CAPSULE NEEDED ORALLY THREE TIMES A DAY NOT-TAKING ATORVASTATIN CALCIUM 20 MG TABLET 1 TABLET ORALLY ONCE A DAY NOT-TAKING ROPINIROLE HCL 1 MG TABLET ORALLY NOT-TAKING KEFLEX 500 MG CAPSULE 1 CAPSULE ORALLY EVERY 12 HRS MEDICATION LIST REVIEWED AND RECONCILED WITH THE PATIENT PAST MEDICAL HISTORY ANXIETY ARTHRITIS GERD HYPERLIPIDEMIA HYPERTENSION LOW BACK PAIN NEUROMUSCULAR DISORDEER HEADACHE ALLERGIES N.K.D.A. SOCIAL HISTORY GENERAL: TOBACCO USE ARE YOU A:NONSMOKER LATEX QUESTIONNAIRE LATEX ALLERGY : HAVE YOU EVER DEVELOPED ANY TYPE OF REACTION AFTER HANDLING LATEX PRODUCTS SUCH RUBBER GLOVES, CONDOMS, DIAPHRAGMS, BALLOONS, SOCKS, OR UNDERWEAR?NO LATEX ALLERGY : HAVE YOU EVER DEVELOPED ANY TYPE OF REACTION DURING OR AFTER DENTAL APPOINTMENT, VAGINAL/RECTAL EXAMINATION, SURGICAL PROCEDURE, OR ANY OTHER EXPOSURE?NO LATEX RISK : HAVE YOU EVER HAD ANY DIFFICULTY BREATHING OR HIVES AFTER EATING OR HANDLING ANY FRUITS, OR VEGETABLES; SUCH KIWI, BANANAS, STONE FRUITS, OR CHESTNUTSNO LATEX RISK : DO YOU HAVE A PREVIOUS PERSONAL HISTORY OF MORE THAN NINE SURGERIES, SPINA BIFIDA, OR REPEATED CATHERIZATIONS? NO LATEX RISK : ARE YOU FREQUENTLY EXPOSED TO LATEX PRODUCTS IN YOUR OCCUPATION?NO DATE ASKED : 08/20/2020 ALCOHOL USE: YES. ALCOHOL SCREENING DID YOU HAVE A DRINK CONTAINING ALCOHOL IN THE PAST YEAR?YES HOW MANY DRINKS DID YOU HAVE ON A TYPICAL DAY WHEN YOU WERE DRINKING IN THE PAST YEAR?3 OR 4 (1 POINT) HOW OFTEN DID YOU HAVE A DRINK CONTAINING ALCOHOL IN THE PAST YEAR?MONTHLY OR LESS (1 POINT) POINTS2 INTERPRETATIONNEGATIVE RECREATIONAL DRUG USE DRUG USE?NO LEARNING BARRIERS / SPECIAL NEEDS CHANGE FROM LAST VISIT?NO BARRIERS TO LEARNING?NO HEARING IMPAIRED?NO VISION IMPAIRED?YES :CORRECTIVE LENSES COGNITIVELY IMPAIRED?NO READINESS TO LEARN?YES LEARNING PREFERENCES?NO LEARNING CAPABILITIES PRESENT?YES EMOTIONAL BARRIERS?NO SPECIAL DEVICES?YES :CANE, WALKER NEEDED MEDICATION SPECIALIST NEEDED?NO REVIEW OF SYSTEMS CONSTITUTIONAL: ANY RECENT FEVER NO . CHILLS NO . WEIGHT CHANGE OF UNKNOWN REASONS NO . GASTROENTEROLOGY: NEW UNEXPLAINABLE CHANGES IN BOWEL CONTROL NO . CONSTIPATION NO . GENITOURINARY: ANY NEW CHANGE IN BLADDER CONTROL? NO . NEUROLOGY: NEW ONSET DIZZINESS OR NEUROLOGICAL CHANGES NOT MENTIONED NO . NEW NUMBNESS OR PAIN PATTERNS NOT MENTIONED AND PERTINENT TO TODAY'S VISIT NO . CARDIOLOGY: NEW CHEST PRESSURE NO . PATIENT DENIES NO . RESPIRATORY: UNEXPLAINABLE COUGH NO . NEW SHORTNESS OF BREATH NO . VITAL SIGNS WT 182 LBS, HT 64 IN, BMI 31.24 INDEX, BP 135/74 MM HG, HR 98 /MIN, RR 18 /MIN, TEMP 96.7 F, OXYGEN SAT % 98%, SAFE IN ENV? (Y/N) YES, NA INITIALS GA 11:01PATIENT STATED SHE IS IN ALOT OF PAIN ALVINA VICENTE. EXAMINATION GENERAL EXAMINATION: GENERAL ALERT,NO DISTRESS . PSYCH AFFECT NORMAL . FACE:UNREMARKABLE. NECK:NO LYMPHADENOPATHY, SUPPLE. LUNGS: LUNG SOUNDS ARE CLEAR . HEART: HEART RATE REGULAR . MUSCULOSKELETAL: MST 5/5 BILAT. LOWER EXTREMITIES . LUMBAR: TENDERNESS BILAT. SIJ R>L. POSITIVE DIMAS'S TESTING OVER RIGHT LEG. DIAGNOSTIC TESTS REVIEWEDMRI L/S SPINE 09/26/2019. ASSESSMENTS SACROILIITIS, NOT ELSEWHERE CLASSIFIED - M46.1 (PRIMARY) TREATMENT SACROILIITIS, NOT ELSEWHERE CLASSIFIED NOTES: RIGHT SACROILIAC JOINT BLOCK PRINTED AND REVIEWED PRE PROCEDURE TEACHING, PATIENT VERBALIZED UNDERSTANDING ALVINA MONTOYA PROCEDURE CODES FA211 ESTABILISHED PATIENT [facility] CHARGE DISPOSITION & COMMUNICATION FOLLOW UP POST (REASON: RIGHT SACROILIAC JOINT BLOCK) ELECTRONICALLY SIGNED BY JOSELYN DONNELLY ON 08/23/2020 AT 08:50 PM EDT DISCLAIMER : THIS IS A VISIT SUMMARY EXTRACTED FROM THE [employer] CHART. IT IS NOT A COPY OF THE [employer] PROGRESS NOTE. LIUDMILAD
== END ==
LOC: M PAIN 10:45
PROVIDERS: ATTEND Nurse Practitioner Family
DX: M46.1 Sacroiliitis, not elsewhere classified (principal); G89.29 Other chronic pain; R73.03 Prediabetes; K21.9 Gastro-esophageal reflux disease without esophagitis; Z86.59 Personal history of other mental and behavioral disorders; Z79.899 Other long term (current) drug therapy

== ENCOUNTER → 2020-08-26 | Outpatient (CLI) | payer OTHER | LOC: M LABSMTC 11:46 | PROVIDERS: ATTEND Anesthesiology | DX: Z20.828 Contact with and (suspected) exposure to other viral communicable diseases (principal); Z11.59 Encounter for screening for other viral diseases ==

== ENCOUNTER → 2020-08-31 | Outpatient (CLI) | payer OTHER ==
[~2020-08-31] MED LIST changes: +BUPIVACAINE HCL 0.25% 30ML VIAL As Ordered ONE; +ISOVUE-M 300 61% 15ML VIAL As Ordered ONE; +LIDOCAINE 1% SDV 30ML VIAL As Ordered ONE; +TRIAMCINOLONE ACETONIDE SUSP 40 MG/ML VIAL (J3301) As Ordered ONE; +diazePAM 5MG TABLET As Ordered ONE; +oxyCODONE 5MG TAB As Ordered ONE
--- NOTE | 2020-08-31 14:41 | REP ---
INDICATION: SIJ. COMPARISON: None. TECHNIQUE: Two views. 17.5 seconds of fluoroscopy time is reported. FINDINGS: A sequence of 2 last image hold fluoroscopically obtained spot radiographs of the right SI joint document needle position and contrast injection associated with injection procedure. IMPRESSION: Procedural imaging. <Electronically signed by Eusebio Donnelly > 08/31/20 8514
--- NOTE | 2020-09-02 00:32 | ECWPNPC ---
PATIENT NAME: DAVID STANLEY : 1965 GENDER: FEMALE VISIT DATE: 08/31/2020 DISCHARGE DATE: 08/31/20 1251 VISIT LOCKED DATE TIME: PHYSICIAN: SITA SIMMS MD RESOURCE: SITA SIMMS MD REASON FOR APPOINTMENT 1. FOR RIGHT SACROILIAC JOINT BLOCK. HISTORY OF PRESENT ILLNESS GENERAL: -. FALL RISK SCREENING: SCREENING : NO FALLS REPORTED IN THE LAST YEAR. PAIN SCREENING: PATIENT HAS A COMPLAINT OF ACUTE OR CHRONIC PAIN :YES LOCATION OF PAIN:LOW BACK RIGHT LOW BACK AND RIGHT ANTERIOR THIGH INTENSITY OF PAIN (SCALE OF 1 TO 10):7 WHAT DOES YOUR PAIN FEEL LIKE:ACHING, CONTINOUS, INTERMITTENT, STABBING INTERMITTENTLY STABBING DURATION:CONTINOUS PAIN IS INCREASED BY:ACTIVITIES PAIN IS DECREASED BY:USE OF PAIN MEDICATIONS, OTHERS REST NURSING NOTE: -. PAIN CENTER INTAKE QUESTIONS: DO YOU HAVE A HISTORY OF MRSA? :NO DO YOU TAKE A BLOOD THINNERS? :NO DO YOU HAVE ANY BLEEDING DISORDERS? :NO ANY NEW NUMBNESS OR WEAKNESS IN YOUR LEGS OR ARMS? :NO ANY PACEMAKER,DEFIBRILLATOR, OR DORSAL COLUMN STIMULATOR? :NO DO YOU HAVE ANY RASHES OR OPEN SORES? :NO ARE YOU ALLERGIC TO IV DYE? :NO ARE YOU DIABETIC? :NO ANY NEW PROBLEMS WITH YOUR MEDICATIONS? :NO HAVE YOU RECEIVED A VACCINE IN THE PAST 30 DAYS? :NO DO YOU PLAN TO RECEIVE A VACCINE IN THE NEXT 21 DAYS? :NO DO YOU TAKE ANY IMMUNOSUPPRESSIVE MEDICATIONS? :NO ANY HISTORY OF SEIZURES? :NO ANY HISTORY OF CARDIAC ISSUES OR EVENTS? :NO DO YOU HAVE ANY KIDNEY OR LIVER DISEASE? :NO DO YOU HAVE SLEEP APNEA? :YES DO YOU WEAR A CPAP?NO ANY RECENT HEAD INJURY? :NO DO YOU HAVE ANY NEW INFECTIONS? :NO IS THERE A CHANCE YOU COULD BE ? :NO ARE YOU BREAST FEEDING? :NO WHEN DID YOU LAST EAT? : -1900 08/30/20 WHEN DID YOU LAST DRINK? : -08/31/20 @0700 WHAT DID YOU LAST DRINK? : -WATER NAME OF PERSON DRIVING YOU HOME? : -SON MISAEL DO YOU HAVE ANY OTHER QUESTIONS OR CONCERNS? : -DENIES CURRENT MEDICATIONS TAKING AMLODIPINE BESYLATE 10 MG TABLET 1 TABLET ORALLY ONCE A DAY TAKING BUSPIRONE HCL 10 MG TABLET 1 TABLET ORALLY ONCE A DAY TAKING IBUPROFEN 400 MG TABLET 2 TABLETS ORALLY ONCE A DAY TAKING LISINOPRIL 20 MG TABLET 1 TABLET ORALLY ONCE A DAY TAKING TIZANIDINE HCL 2 MG TABLET 1 TABLET NEEDED ORALLY THREE TIMES A DAY TAKING VOLTAREN 1 % GEL DIRECTED EXTERNALLY TAKING LIDOCAINE 5 % PATCH 1 PATCH REMOVE AFTER 12 HOURS EXTERNALLY ONCE A DAY TAKING TYLENOL EXTRA STRENGTH 500 MG TABLET 1 TABLET NEEDED ORALLY EVERY 6 HRS TAKING ROPINIROLE HCL 2 MG TABLET 1 TABLET 1 TO 3 HOURS BEFORE BEDTIME ORALLY ONCE A DAY TAKING VITAMIN D 28628 U TABLET 1 TABLET ORALLY ONCE A WEEK TAKING OMEPRAZOLE 20 MG TABLET DELAYED RELEASE ORALLY BID NOT-TAKING ACETAMINOPHEN 325 MG CAPSULE 1 CAPSULE NEEDED ORALLY EVERY 6 HRS NOT-TAKING HYDROCODONE-ACETAMINOPHEN 5-325 MG TABLET 1 TABLET NEEDED ORALLY EVERY 6 HRS NOT-TAKING DICLOFENAC 18 MG CAPSULE 1 CAPSULE NEEDED ORALLY THREE TIMES A DAY NOT-TAKING ATORVASTATIN CALCIUM 20 MG TABLET 1 TABLET ORALLY ONCE A DAY NOT-TAKING ROPINIROLE HCL 1 MG TABLET ORALLY NOT-TAKING KEFLEX 500 MG CAPSULE 1 CAPSULE ORALLY EVERY 12 HRS PAST MEDICAL HISTORY ANXIETY ARTHRITIS GERD HYPERLIPIDEMIA HYPERTENSION LOW BACK PAIN NEUROMUSCULAR DISORDEER HEADACHE ALLERGIES N.K.D.A. SURGICAL HISTORY ABLASION SECTION 3 SHOULDER ARTHROSCOPY FAMILY HISTORY FATHER: , DIAGNOSED WITH DIABETES, OTHER SPECIFIED CONDITIONS INFLUENCING HEALTH STATUS MOTHER: , DIABETES SON(S): ALIVE 3 SON(S) - HEALTHY. SOCIAL HISTORY GENERAL: TOBACCO USE ARE YOU A:NONSMOKER LATEX QUESTIONNAIRE LATEX ALLERGY : HAVE YOU EVER DEVELOPED ANY TYPE OF REACTION AFTER HANDLING LATEX PRODUCTS SUCH RUBBER GLOVES, CONDOMS, DIAPHRAGMS, BALLOONS, SOCKS, OR UNDERWEAR?NO LATEX ALLERGY : HAVE YOU EVER DEVELOPED ANY TYPE OF REACTION DURING OR AFTER DENTAL APPOINTMENT, VAGINAL/RECTAL EXAMINATION, SURGICAL PROCEDURE, OR ANY OTHER EXPOSURE?NO LATEX RISK : HAVE YOU EVER HAD ANY DIFFICULTY BREATHING OR HIVES AFTER EATING OR HANDLING ANY FRUITS, OR VEGETABLES; SUCH KIWI, BANANAS, STONE FRUITS, OR CHESTNUTSNO LATEX RISK : DO YOU HAVE A PREVIOUS PERSONAL HISTORY OF MORE THAN NINE SURGERIES, SPINA BIFIDA, OR REPEATED CATHERIZATIONS? NO LATEX RISK : ARE YOU FREQUENTLY EXPOSED TO LATEX PRODUCTS IN YOUR OCCUPATION?NO DATE ASKED : 08/30/2020 ALCOHOL USE: YES. ALCOHOL SCREENING DID YOU HAVE A DRINK CONTAINING ALCOHOL IN THE PAST YEAR?YES HOW MANY DRINKS DID YOU HAVE ON A TYPICAL DAY WHEN YOU WERE DRINKING IN THE PAST YEAR?3 OR 4 (1 POINT) HOW OFTEN DID YOU HAVE A DRINK CONTAINING ALCOHOL IN THE PAST YEAR?MONTHLY OR LESS (1 POINT) POINTS2 INTERPRETATIONNEGATIVE RECREATIONAL DRUG USE DRUG USE?NO LEARNING BARRIERS / SPECIAL NEEDS CHANGE FROM LAST VISIT?NO BARRIERS TO LEARNING?NO HEARING IMPAIRED?NO VISION IMPAIRED?YES :CORRECTIVE LENSES COGNITIVELY IMPAIRED?NO READINESS TO LEARN?YES LEARNING PREFERENCES?NO LEARNING CAPABILITIES PRESENT?YES EMOTIONAL BARRIERS?NO SPECIAL DEVICES?YES :CANE, WALKER NEEDED TRANSPORTATION PROJECT MANAGER NEEDED?NO HOSPITALIZATION/MAJOR DIAGNOSTIC PROCEDURE SEE ABOVE VITAL SIGNS WT 183.6 LBS, HT 64 IN, BMI 31.51 INDEX, BP 126/71 MM HG, HR 67 /MIN, RR 18 /MIN, TEMP 98.1 F, OXYGEN SAT % 98%, NA INITIALS AW 1118. EXAMINATION GENERAL: A HISTORY AND PHYSICAL EXAM ON THE PATIENT WAS DONE ON 08/20/2020 (DATE OF ORIGINAL ASSESSMENT) IN PREPARATION OF SURGERY/PROCEDURE. I HAVE NOW REASSESSED THIS PATIENT'S HEALTH STATUS AND PERFORMED AN UPDATED EXAM TODAY. ALL CHANGES IN THE PATIENT'S HISTORY, PHYSICAL EXAM, PRE-EXISTING CONDITONS, AND INDICATIONS/CONTRAINDICATIONS TO THE PLANNED PROCEDURE AND ANESTHESIA ARE DOCUMENTED AND EVALUATED BELOW. I ATTEST TO THE ADEQUACY AND APPROPRIATENESS OF MY ASSESSMENT, AND CONFIRM THE NECESSITY FOR THE PLANNED PROCEDURE. THE PATIENT IS ALERT, ORIENTED TIMES THREE AND COOPERATIVE. LUNGS ARE CLEAR TO AUSCULTATION. HEART SHOWS REGULAR RHYTHM, NO MURMURS AND NO GALLOPS. ASSESSMENTS SACROILIITIS - M46.1 (PRIMARY) TREATMENT SACROILIITIS [facility] FLUORO GUIDANCE (PAIN)[id number] MEDICATION: VALIUM TAB 10MG ORALLY (DIAZEPAM)JOLEEN PENA 08/31/2020 11:33:56 AM > VERIFIED. NATE BAILEY 08/31/2020 11:35:56 AM > ADMINISTERED MEDICATION: OXYCODONE HCL TAB 10MG ORALLYJOLEEN PENA 08/31/2020 11:34:12 AM > VERIFIED. NATE BAILEY 08/31/2020 11:36:18 AM > ADMINISTERED COMPLETION OF PROCEDURAL VISIT WHEN MEETS CRITERIANATE BAILEY 08/31/2020 12:52:58 PM > CRITERIA MET AT 1248 OTHERS NOTES: /PAT COMPLETED 08/30/20 Fei CALDERA RN. PROCEDURES PAIN NURSING RECORD PROCEDURE IN ROOM 1205, PHYSICIAN IN ROOM 1228, START 1234, FINISH 1237, PHYSICIAN OUT OF ROOM 1237, OUT OF ROOM 1240, ECG NORMAL SINUS, PATIENT SHIELDED YES, SAFETY STRAP YES, PREP CHLOROPREP Riddhi BAILEY RN LOC: NATE BAILEY 08/31/2020 12:17:31 PM > 1. ALERT, ORIENTED RESP: 1. REGULAR, NO DYSPNEA [facility] 08/31/2020 12:17:37 PM > COLOR: 1. PINK [facility] 08/31/2020 12:17:42 PM > SKIN: 1. WARM, DRY [facility] 08/31/2020 12:17:47 PM > POSITION: 1. PRONE [facility] 08/31/2020 12:17:52 PM > VITALS: HR 64, 97%, 126/58, R 14, PAIN 6/10 [facility] 08/31/2020 12:18:48 PM > HR 74, 98%, 122/58, R14, PAIN 6/1 [facility] 08/31/2020 12:30:09 PM > EXIT VITALS 122/60, HR 73, 98% R 14, PAIN 5/10 1248 TBRADRIGORN EZRA BAILEY RN COMPLETION OF PROCEDURE APPOINTMENT: POST PAIN 5, DRESSING SITE DRY AND INTACT, IV N/A, GAIT STEADY, TEACHING COMPLETED, PATIENT ACKNOWLEDGES UNDERSTANDING YES, PROCEDURE APPOINTMENT COMPLETED AT 1248 PRE PROCEDURE DIAGNOSIS SACROILITIS, SACROILIAC JOINT DYSFUNCTION POST PROCEDURE DIAGNOSIS SACROILIITIS, SACROILIAC JOINT DYSFUNCTION PROCEDURE RIGHT SACROILIAC JOINT BLOCK SURGEON DR. SITA SIMMS DIRECTOR OF LABORATORY OPERATIONS NONE ANESTHESIA LOCAL PRE PROCEDURE NOTE THE PATIENT HAS A HISTORY OF CHRONIC LOW BACK PAIN. I EVALUATED THE PATIENT AND REVIEWED THE CHART. I WENT OVER THE RISKS, BENEFITS AND ALTERNATIVES ASSOCIATED WITH THIS PROCEDURE. THE PATIENT WOULD LIKE TO PROCEED AND GIVES CONSENT TO PERFORM THE PROCEDURE. THE PATIENT DENIES UNEXPLAINABLE WEIGHT LOSS, FEVER, CHILLS OR NEW CHANGES IN URINARY OR BOWEL CONTROL. THE PATIENT IS COVID-19 NEGATIVE. DESCRIPTION OF PROCEDURE THE PATIENT WAS BROUGHT TO THE PROCEDURE ROOM AND PLACED IN THE PRONE POSITION. THE LUMBOSACRAL AREA WAS CLEANED WITH CHLORAPREP SOLUTION AND DRAPED ASEPTICALLY. THE PROCEDURE WAS DONE UNDER STERILE CONDITIONS. A TIMEOUT WAS PERFORMED WHERE THE CONSENTED SITE WAS VERIFIED WITH EVERYONE IN THE ROOM UNDER FLUOROSCOPIC GUIDANCE, THE TARGET POINT WAS SELECTED AT THE LOWER BORDER OF THE RIGHT SACROILIAC JOINT. TARGET POINT WAS SELECTED AFTER MEDIAL ROTATION AND TILT OF THE MAGNIFIER OR THE C-ARM. I CONFIRMED AGAIN THE SITE OF TARGET. LIDOCAINE 0.5% WAS USED TO NUMB THE SKIN AND THE SUBCUTANEOUS TISSUE BELOW IT. SPINAL NEEDLE, 22-GAUGE, WAS ADVANCED UNDER FLUOROSCOPIC GUIDANCE AND FOLLOWING PATIENT FEEDBACK UNTIL THE TARGET WAS TOUCHED. THE POSITION OF THE NEEDLE WAS VERIFIED WITH AP AND OBLIQUE VIEWS. AFTER PROPER POSITION OF THE NEEDLE WAS ACHIEVED, ISOVUE-M DYE 30%, 0.1 ML, WAS INJECTED SHOWING ADEQUATE SPREAD OF THE DYE. KENALOG 40 MG WAS INJECTED. THEN, A SOLUTION OF 3.0 ML OF BUPIVACAINE 0.125% WAS USED TO FLUSH THE NEEDLE. THE MEDICATIONS WERE VERIFIED WITH THE NURSE. THERE WAS NO EVIDENCE OF BLOOD, PARESTHESIA OR CEREBROSPINAL FLUID DURING THE PROCEDURE. THE PATIENT WAS SENT TO THE RECOVERY ROOM. THE PATIENT WAS MOVING THE EXTREMITIES AND DOING WELL. THERE WERE NO COMPLICATIONS DURING THE PROCEDURE. ESTIMATED BLOOD LOSS WAS LESS THAN 5 ML. FLUOROSCOPIC TIME WAS 17 SECONDS. POST PROCEDURE NOTE THE PATIENT WILL BE SEEN IN A FOLLOW UP IN THE NEXT FEW WEEKS. I AM LOOKING FOR LONG LASTING RELIEF FOR THE PATIENT WITH THIS INTERVENTION. INSTRUCTIONS WERE GIVEN, QUESTIONS WERE ANSWERED AND THE PATIENT EXPRESSED UNDERSTANDING AND AGREES WITH THE PAIN. I, ANKUR PADRNO, DOCUMENTED THE ABOVE INFORMATION ACTING A SCRIBE FOR DR. SIMMS. I HAVE REVIEWED THE ABOVE DOCUMENT WRITTEN BY ANKUR PADRON, [employer] PROGRAM OFFICER, AND I VERIFY THAT IT IS ACCURATE. PROCEDURE CODES 06854 INJECT SACROILIAC JOINT, MODIFIERS: RT DISPOSITION & COMMUNICATION FOLLOW UP FOLLOW UP WITH LATHE SANDER (REASON: POST RIGHT SACROILIAC JOINT BLOCK) ELECTRONICALLY SIGNED BY SITA SIMMS MD, MD ON 09/01/2020 AT 05:03 PM EDT DISCLAIMER : THIS IS A VISIT SUMMARY EXTRACTED FROM THE [email or web address] CHART. IT IS NOT A COPY OF THE [email or web address] PROGRESS NOTE. DENIS
== END ==
LOC: M PAIN 11:00
PROVIDERS: ATTEND Anesthesiology
DX: M46.1 Sacroiliitis, not elsewhere classified (principal); G47.30 Sleep apnea, unspecified; K21.9 Gastro-esophageal reflux disease without esophagitis; Z86.59 Personal history of other mental and behavioral disorders; Z79.899 Other long term (current) drug therapy
CPT/HCPCS: G0260; J3301; Q9967

== ENCOUNTER → 2020-09-17 | Outpatient (CLI) | payer OTHER ==
[~2020-09-17] MED LIST changes: -BUPIVACAINE HCL 0.25% 30ML VIAL As Ordered ONE; -ISOVUE-M 300 61% 15ML VIAL As Ordered ONE; -LIDOCAINE 1% SDV 30ML VIAL As Ordered ONE; -TRIAMCINOLONE ACETONIDE SUSP 40 MG/ML VIAL (J3301) As Ordered ONE; -diazePAM 5MG TABLET As Ordered ONE; -oxyCODONE 5MG TAB As Ordered ONE
--- NOTE | 2020-09-18 04:55 | ECWPNPC ---
PATIENT NAME: DAVID STANLEY : 1965 GENDER: FEMALE VISIT DATE: 09/17/2020 DISCHARGE DATE: 09/17/20 1058 VISIT LOCKED DATE TIME: PHYSICIAN: BRYSON CARRERO RESOURCE: BRYSON CARRERO REASON FOR APPOINTMENT 1. POST RIGHT SACROILIAC JOINT BLOCK. HISTORY OF PRESENT ILLNESS GENERAL: HERE FOR POST PROCEDURE FOLLOW-UP. HAD RIGHT SACROILIAC JOINT BLOCK ON 08/31/2020. REPORTING MARKED REDUCTION IN PAIN AND IMPROVEMENT WITH ACTIVITY TOLERANCE SINCE INJECTION. DISCUSSED HOME EXERCISE AND STRETCHING PROGRAM. DISCUSSED WALKING PROGRAM. OVERALL DOING WELL. -. FALL RISK SCREENING: SCREENING : NO FALLS REPORTED IN THE LAST YEAR. PAIN SCREENING: PATIENT HAS A COMPLAINT OF ACUTE OR CHRONIC PAIN :YES LOCATION OF PAIN:LOW BACK INTENSITY OF PAIN (SCALE OF 1 TO 10):4 WHAT DOES YOUR PAIN FEEL LIKE:ACHING, CONTINOUS, STABBING PRESSURE ON THE RIGHT SIDE DURATION:CONTINOUS, CONSTANT, ALL DAY PAIN IS INCREASED BY:PROLONGED STANDING PAIN IS DECREASED BY:OTHERS RESTING NURSING NOTE: -. PAIN CENTER INTAKE QUESTIONS: DO YOU HAVE A HISTORY OF MRSA? :NO DO YOU TAKE A BLOOD THINNERS? :NO DO YOU HAVE ANY BLEEDING DISORDERS? :NO ANY NEW NUMBNESS OR WEAKNESS IN YOUR LEGS OR ARMS? :NO ANY PACEMAKER,DEFIBRILLATOR, OR DORSAL COLUMN STIMULATOR? :NO DO YOU HAVE ANY RASHES OR OPEN SORES? :NO ARE YOU ALLERGIC TO IV DYE? :NO NOT SURE ARE YOU DIABETIC? :NO PRE DIABETIC ANY NEW PROBLEMS WITH YOUR MEDICATIONS? :NO HAVE YOU RECEIVED A VACCINE IN THE PAST 30 DAYS? :YES 1ST COVID 07/21/2020 DO YOU PLAN TO RECEIVE A VACCINE IN THE NEXT 21 DAYS? :NO DO YOU NEED ANY PRESCRIPTION? :NO DO YOU TAKE ANY IMMUNOSUPPRESSIVE MEDICATIONS? :NO CURRENT MEDICATIONS TAKING AMLODIPINE BESYLATE 10 MG TABLET 1 TABLET ORALLY ONCE A DAY TAKING BUSPIRONE HCL 10 MG TABLET 1 TABLET ORALLY ONCE A DAY TAKING IBUPROFEN 400 MG TABLET 2 TABLETS ORALLY ONCE A DAY TAKING LISINOPRIL 20 MG TABLET 1 TABLET ORALLY ONCE A DAY TAKING TIZANIDINE HCL 2 MG TABLET 1 TABLET NEEDED ORALLY THREE TIMES A DAY TAKING VOLTAREN 1 % GEL DIRECTED EXTERNALLY TAKING LIDOCAINE 5 % PATCH 1 PATCH REMOVE AFTER 12 HOURS EXTERNALLY ONCE A DAY TAKING TYLENOL EXTRA STRENGTH 500 MG TABLET 1 TABLET NEEDED ORALLY EVERY 6 HRS TAKING ROPINIROLE HCL 2 MG TABLET 1 TABLET 1 TO 3 HOURS BEFORE BEDTIME ORALLY ONCE A DAY TAKING VITAMIN D 34836 U TABLET 1 TABLET ORALLY ONCE A WEEK TAKING OMEPRAZOLE 20 MG TABLET DELAYED RELEASE ORALLY BID NOT-TAKING ACETAMINOPHEN 325 MG CAPSULE 1 CAPSULE NEEDED ORALLY EVERY 6 HRS NOT-TAKING HYDROCODONE-ACETAMINOPHEN 5-325 MG TABLET 1 TABLET NEEDED ORALLY EVERY 6 HRS NOT-TAKING DICLOFENAC 18 MG CAPSULE 1 CAPSULE NEEDED ORALLY THREE TIMES A DAY NOT-TAKING ATORVASTATIN CALCIUM 20 MG TABLET 1 TABLET ORALLY ONCE A DAY NOT-TAKING ROPINIROLE HCL 1 MG TABLET ORALLY NOT-TAKING KEFLEX 500 MG CAPSULE 1 CAPSULE ORALLY EVERY 12 HRS MEDICATION LIST REVIEWED AND RECONCILED WITH THE PATIENT PAST MEDICAL HISTORY ANXIETY ARTHRITIS GERD HYPERLIPIDEMIA HYPERTENSION LOW BACK PAIN NEUROMUSCULAR DISORDEER HEADACHE ALLERGIES N.K.D.A. SOCIAL HISTORY GENERAL: TOBACCO USE ARE YOU A:NONSMOKER LATEX QUESTIONNAIRE LATEX ALLERGY : HAVE YOU EVER DEVELOPED ANY TYPE OF REACTION AFTER HANDLING LATEX PRODUCTS SUCH RUBBER GLOVES, CONDOMS, DIAPHRAGMS, BALLOONS, SOCKS, OR UNDERWEAR?NO LATEX ALLERGY : HAVE YOU EVER DEVELOPED ANY TYPE OF REACTION DURING OR AFTER DENTAL APPOINTMENT, VAGINAL/RECTAL EXAMINATION, SURGICAL PROCEDURE, OR ANY OTHER EXPOSURE?NO LATEX RISK : HAVE YOU EVER HAD ANY DIFFICULTY BREATHING OR HIVES AFTER EATING OR HANDLING ANY FRUITS, OR VEGETABLES; SUCH KIWI, BANANAS, STONE FRUITS, OR CHESTNUTSNO LATEX RISK : DO YOU HAVE A PREVIOUS PERSONAL HISTORY OF MORE THAN NINE SURGERIES, SPINA BIFIDA, OR REPEATED CATHERIZATIONS? NO LATEX RISK : ARE YOU FREQUENTLY EXPOSED TO LATEX PRODUCTS IN YOUR OCCUPATION?NO DATE ASKED : 09/17/2020 ALCOHOL USE: YES. ALCOHOL SCREENING DID YOU HAVE A DRINK CONTAINING ALCOHOL IN THE PAST YEAR?YES HOW MANY DRINKS DID YOU HAVE ON A TYPICAL DAY WHEN YOU WERE DRINKING IN THE PAST YEAR?3 OR 4 (1 POINT) HOW OFTEN DID YOU HAVE A DRINK CONTAINING ALCOHOL IN THE PAST YEAR?MONTHLY OR LESS (1 POINT) POINTS2 INTERPRETATIONNEGATIVE RECREATIONAL DRUG USE DRUG USE?NO LEARNING BARRIERS / SPECIAL NEEDS CHANGE FROM LAST VISIT?NO BARRIERS TO LEARNING?NO HEARING IMPAIRED?NO VISION IMPAIRED?YES :CORRECTIVE LENSES COGNITIVELY IMPAIRED?NO READINESS TO LEARN?YES LEARNING PREFERENCES?NO LEARNING CAPABILITIES PRESENT?YES EMOTIONAL BARRIERS?NO SPECIAL DEVICES?YES :CANE, WALKER NEEDED BUGGY LOADER NEEDED?NO REVIEW OF SYSTEMS CONSTITUTIONAL: ANY RECENT FEVER NO . CHILLS NO . WEIGHT CHANGE OF UNKNOWN REASONS NO . GASTROENTEROLOGY: NEW UNEXPLAINABLE CHANGES IN BOWEL CONTROL NO . CONSTIPATION NO . GENITOURINARY: ANY NEW CHANGE IN BLADDER CONTROL? NO . NEUROLOGY: NEW ONSET DIZZINESS OR NEUROLOGICAL CHANGES NOT MENTIONED NO . NEW NUMBNESS OR PAIN PATTERNS NOT MENTIONED AND PERTINENT TO TODAY'S VISIT NO . CARDIOLOGY: NEW CHEST PRESSURE NO . PATIENT DENIES NO . RESPIRATORY: UNEXPLAINABLE COUGH NO . NEW SHORTNESS OF BREATH NO . VITAL SIGNS WT 181.0 LBS, HT 64 IN, BMI 31.07 INDEX, BP 129/75 MM HG, HR 78 /MIN, RR 18 /MIN, TEMP 98.1 F, OXYGEN SAT % 96%, SAFE IN ENV? (Y/N) YES, NA INITIALS AW 1009T.[employer] [employer] EXAMINATION GENERAL EXAMINATION: GENERALAWAKE,ALERT ,PLEASANT . PSYCHAFFECT NORMAL . LUNGS:LUNG GODDARD ARE CLEAR TO AUSCULTATION BILATERALLY. GOOD MOVEMENT OF AIR . HEART:S1, S2 IN A REGULAR RATE AND RHYTHM. NO SIGNIFICANT MURMURS, RUBS OR GALLOPS NOTED . ASSESSMENTS OTHER CHRONIC PAIN - G89.29 (PRIMARY) SACROILIITIS - M46.1 TREATMENT OTHER CHRONIC PAIN PAIN PROCEDURE LOGDATE OF PROCEDURE08/31/20PROCEDURE:RIGHT SACROILIAC JOINT BLOCKAMOUNT OF PRE SEDATEVALIUM 10 MG, OXYCODONE 10 MGRESULT:MARKED REDUCTION IN PAIN CONTINUES TODAY NOTES: ADVISED PATIENT TO CONTINUE HOME STRETCHING EXERCISES AND WALKING. FOLLOW-UP IS SCHEDULED IN 3 MONTHS. PROCEDURE CODES FA211 ESTABILISHED PATIENT [facility] CHARGE DISPOSITION & COMMUNICATION FOLLOW UP 3 MONTHS (REASON: RIGHT LOW BACK PAIN/RESPONDS WELL TO [facility]) ELECTRONICALLY SIGNED BY JOSELYN DONNELLY ON 09/17/2020 AT 11:01 AM EDT DISCLAIMER : THIS IS A VISIT SUMMARY EXTRACTED FROM THE [employer] CHART. IT IS NOT A COPY OF THE [employer] PROGRESS NOTE. DENIS
== END ==
LOC: M PAIN 10:00
PROVIDERS: ATTEND Nurse Practitioner Family
DX: M46.1 Sacroiliitis, not elsewhere classified (principal); G89.29 Other chronic pain; R73.03 Prediabetes; K21.9 Gastro-esophageal reflux disease without esophagitis; Z86.59 Personal history of other mental and behavioral disorders; Z79.899 Other long term (current) drug therapy

== ENCOUNTER → 2020-11-02 | Outpatient (CLI) | payer OTHER ==
[~2020-11-02] MED LIST changes: +OMEP40CA4 PO; -OMEP40CA97 PO
--- NOTE | 2020-11-05 01:16 | ECWPNPC ---
PATIENT NAME: DAVID STANLEY : 1965 GENDER: FEMALE VISIT DATE: 11/02/2020 DISCHARGE DATE: 11/02/20 1103 VISIT LOCKED DATE TIME: PHYSICIAN: BRYSON CARRERO RESOURCE: BRYSON CARRERO REASON FOR APPOINTMENT 1. INCREASE PAIN HISTORY OF PRESENT ILLNESS GENERAL: HERE FOR FOLLOW-UP ON AN URGENT BASIS FOR LOW BACK PAIN. HAS BEEN HAVING AN INCREASE IN LOW BACK PAIN WITH RADICULAR SYMPTOMS OVER THE PAST MONTH. PAIN HAS KEPT HER FROM DOING HER USUAL ACTIVITIES. REVIEWED MRI OF THE LS SPINE. DISCUSSED TREATMENT OPTIONS. -. FALL RISK SCREENING: SCREENING : NO FALLS REPORTED IN THE LAST YEAR. PAIN SCREENING: PATIENT HAS A COMPLAINT OF ACUTE OR CHRONIC PAIN :YES LOCATION OF PAIN:LOW BACK INTENSITY OF PAIN (SCALE OF 1 TO 10):7 WHAT DOES YOUR PAIN FEEL LIKE:SORE, OTHER PRESSURE DURATION:CONTINOUS, CONSTANT, ALL DAY PAIN IS INCREASED BY:ACTIVITIES PAIN IS DECREASED BY:USE OF PAIN MEDICATIONS, OTHERS RESTING, NURSING NOTE: -. PAIN CENTER INTAKE QUESTIONS: DO YOU HAVE A HISTORY OF MRSA? :NO DO YOU TAKE A BLOOD THINNERS? :NO DO YOU HAVE ANY BLEEDING DISORDERS? :NO ANY NEW NUMBNESS OR WEAKNESS IN YOUR LEGS OR ARMS? :NO ANY PACEMAKER,DEFIBRILLATOR, OR DORSAL COLUMN STIMULATOR? :NO DO YOU HAVE ANY RASHES OR OPEN SORES? :NO ARE YOU ALLERGIC TO IV DYE? :NO NOT SURE ARE YOU DIABETIC? :NO PRE DIABETIC ANY NEW PROBLEMS WITH YOUR MEDICATIONS? :NO HAVE YOU RECEIVED A VACCINE IN THE PAST 30 DAYS? :NO DO YOU PLAN TO RECEIVE A VACCINE IN THE NEXT 21 DAYS? :NO DO YOU NEED ANY PRESCRIPTION? :NO DO YOU TAKE ANY IMMUNOSUPPRESSIVE MEDICATIONS? :NO CURRENT MEDICATIONS TAKING AMLODIPINE BESYLATE 10 MG TABLET 1 TABLET ORALLY ONCE A DAY TAKING BUSPIRONE HCL 10 MG TABLET 1 TABLET ORALLY ONCE A DAY TAKING IBUPROFEN 400 MG TABLET 2 TABLETS ORALLY ONCE A DAY TAKING LISINOPRIL 20 MG TABLET 1 TABLET ORALLY ONCE A DAY TAKING TIZANIDINE HCL 2 MG TABLET 1 TABLET NEEDED ORALLY THREE TIMES A DAY TAKING VOLTAREN 1 % GEL DIRECTED EXTERNALLY TAKING LIDOCAINE 5 % PATCH 1 PATCH REMOVE AFTER 12 HOURS EXTERNALLY ONCE A DAY TAKING TYLENOL EXTRA STRENGTH 500 MG TABLET 1 TABLET NEEDED ORALLY EVERY 6 HRS TAKING ROPINIROLE HCL 2 MG TABLET 1 TABLET 1 TO 3 HOURS BEFORE BEDTIME ORALLY ONCE A DAY TAKING OMEPRAZOLE 20 MG TABLET DELAYED RELEASE ORALLY BID NOT-TAKING VITAMIN D 53363 U TABLET 1 TABLET ORALLY ONCE A WEEK NOT-TAKING ACETAMINOPHEN 325 MG CAPSULE 1 CAPSULE NEEDED ORALLY EVERY 6 HRS NOT-TAKING HYDROCODONE-ACETAMINOPHEN 5-325 MG TABLET 1 TABLET NEEDED ORALLY EVERY 6 HRS NOT-TAKING DICLOFENAC 18 MG CAPSULE 1 CAPSULE NEEDED ORALLY THREE TIMES A DAY NOT-TAKING ATORVASTATIN CALCIUM 20 MG TABLET 1 TABLET ORALLY ONCE A DAY NOT-TAKING ROPINIROLE HCL 1 MG TABLET ORALLY NOT-TAKING KEFLEX 500 MG CAPSULE 1 CAPSULE ORALLY EVERY 12 HRS MEDICATION LIST REVIEWED AND RECONCILED WITH THE PATIENT PAST MEDICAL HISTORY ANXIETY ARTHRITIS GERD HYPERLIPIDEMIA HYPERTENSION LOW BACK PAIN NEUROMUSCULAR DISORDEER HEADACHE MODERNA 1ST: 07/21/2020 2ND: 10/07/2020 ALLERGIES N.K.D.A. FAMILY HISTORY FATHER: , DIAGNOSED WITH DIABETES, OTHER SPECIFIED CONDITIONS INFLUENCING HEALTH STATUS MOTHER: , DIABETES SON(S): ALIVE 3 SON(S) - HEALTHY. SOCIAL HISTORY GENERAL: TOBACCO USE ARE YOU A:NONSMOKER LATEX QUESTIONNAIRE LATEX ALLERGY : HAVE YOU EVER DEVELOPED ANY TYPE OF REACTION AFTER HANDLING LATEX PRODUCTS SUCH RUBBER GLOVES, CONDOMS, DIAPHRAGMS, BALLOONS, SOCKS, OR UNDERWEAR?NO LATEX ALLERGY : HAVE YOU EVER DEVELOPED ANY TYPE OF REACTION DURING OR AFTER DENTAL APPOINTMENT, VAGINAL/RECTAL EXAMINATION, SURGICAL PROCEDURE, OR ANY OTHER EXPOSURE?NO LATEX RISK : HAVE YOU EVER HAD ANY DIFFICULTY BREATHING OR HIVES AFTER EATING OR HANDLING ANY FRUITS, OR VEGETABLES; SUCH KIWI, BANANAS, STONE FRUITS, OR CHESTNUTSNO LATEX RISK : DO YOU HAVE A PREVIOUS PERSONAL HISTORY OF MORE THAN NINE SURGERIES, SPINA BIFIDA, OR REPEATED CATHERIZATIONS? NO LATEX RISK : ARE YOU FREQUENTLY EXPOSED TO LATEX PRODUCTS IN YOUR OCCUPATION?NO DATE ASKED : 11/02/2020 ALCOHOL USE: YES. ALCOHOL SCREENING DID YOU HAVE A DRINK CONTAINING ALCOHOL IN THE PAST YEAR?YES HOW MANY DRINKS DID YOU HAVE ON A TYPICAL DAY WHEN YOU WERE DRINKING IN THE PAST YEAR?3 OR 4 (1 POINT) HOW OFTEN DID YOU HAVE A DRINK CONTAINING ALCOHOL IN THE PAST YEAR?MONTHLY OR LESS (1 POINT) POINTS2 INTERPRETATIONNEGATIVE RECREATIONAL DRUG USE DRUG USE?NO LEARNING BARRIERS / SPECIAL NEEDS CHANGE FROM LAST VISIT?NO BARRIERS TO LEARNING?NO HEARING IMPAIRED?NO VISION IMPAIRED?YES :CORRECTIVE LENSES COGNITIVELY IMPAIRED?NO READINESS TO LEARN?YES LEARNING PREFERENCES?NO LEARNING CAPABILITIES PRESENT?YES EMOTIONAL BARRIERS?YES COMMENTS ANXIETY SPECIAL DEVICES?YES :CANE, WALKER NEEDED BROKERAGE OFFICE MANAGER NEEDED?NO REVIEW OF SYSTEMS CONSTITUTIONAL: ANY RECENT FEVER NO . CHILLS NO . WEIGHT CHANGE OF UNKNOWN REASONS NO . GASTROENTEROLOGY: NEW UNEXPLAINABLE CHANGES IN BOWEL CONTROL NO . CONSTIPATION NO . GENITOURINARY: ANY NEW CHANGE IN BLADDER CONTROL? NO . NEUROLOGY: NEW ONSET DIZZINESS OR NEUROLOGICAL CHANGES NOT MENTIONED NO . NEW NUMBNESS OR PAIN PATTERNS NOT MENTIONED AND PERTINENT TO TODAY'S VISIT NO . CARDIOLOGY: NEW CHEST PRESSURE NO . PATIENT DENIES NO . RESPIRATORY: UNEXPLAINABLE COUGH NO . NEW SHORTNESS OF BREATH NO . VITAL SIGNS WT 184.6 LBS, HT 64 IN, BMI 31.68 INDEX, BP 139/80 MM HG, HR 65 /MIN, RR 18 /MIN, TEMP 97.7 F, OXYGEN SAT % 97%, SAFE IN ENV? (Y/N) YES, NA INITIALS [id number].[employer] [employer] EXAMINATION GENERAL EXAMINATION: GENERAL AWAKE,ALERT ,PLEASANT . PSYCH AFFECT NORMAL . LUNGS: LUNG GODDARD ARE CLEAR TO AUSCULTATION BILATERALLY. GOOD MOVEMENT OF AIR . HEART: S1, S2 IN A REGULAR RATE AND RHYTHM. NO SIGNIFICANT MURMURS, RUBS OR GALLOPS NOTED . LUMBAR: PALPATION: + FOR PAIN OVER L/S SPINE. + FOR PAIN OVER L/S PARASPINALS SLE: POSITIVE OVER LEFT RIGHT LEG AT 65 DEGREES POSITIVE DIMAS'S TEST OVER RIGHT LEG. DIAGNOSTIC TESTS REVIEWED MRI L/S SPINE-09/2019. ASSESSMENTS RADICULOPATHY, LUMBAR REGION - M54.16 (PRIMARY) TREATMENT RADICULOPATHY, LUMBAR REGION NOTES: LUMBAR EPIDURAL STERIOD INJECTION PRINTED AND REVIEWED PRE PROCEDURE INFORMATION, PATIENT VERBALIZED UNDERSTANDING ALVINA MONTOYA PROCEDURE CODES FA211 ESTABILISHED PATIENT [facility] CHARGE DISPOSITION & COMMUNICATION FOLLOW UP POST (REASON: LUMBAR EPIDURAL STERIOD INJECTION) ELECTRONICALLY SIGNED BY JOSELYN DONNELLY ON 11/04/2020 AT 09:48 AM EDT DISCLAIMER : THIS IS A VISIT SUMMARY EXTRACTED FROM THE [employer] CHART. IT IS NOT A COPY OF THE [employer] PROGRESS NOTE. DENIS
== END ==
LOC: M PAIN 10:15
PROVIDERS: ATTEND Nurse Practitioner Family
DX: M54.16 Radiculopathy, lumbar region (principal); K21.9 Gastro-esophageal reflux disease without esophagitis; Z79.899 Other long term (current) drug therapy

== ENCOUNTER → 2020-11-12 | Outpatient (CLI) | payer OTHER | LOC: M LABSMTC 10:24 | PROVIDERS: ATTEND Anesthesiology | DX: Z20.822 Contact with and (suspected) exposure to COVID-19 (principal) ==

== ENCOUNTER → 2020-11-17 | Outpatient (CLI) | payer OTHER ==
[~2020-11-17] MED LIST changes: +ISOVUE-M 300 61% 15ML VIAL As Ordered ONE; +LIDOCAINE 1% SDV 30ML VIAL As Ordered ONE; +diazePAM 5MG TABLET As Ordered ONE; +methylPREDNISolone SUSP 40MG/ML 1ML VIAL (DEPO MEDROL) As Ordered ONE; +oxyCODONE 5MG TAB As Ordered ONE
--- NOTE | 2020-11-17 12:15 | REP ---
INDICATION: LESI. COMPARISON: None. TECHNIQUE: Three C-arm views lower lumbar spine. FINDINGS: A needle is seen at the L5 level. A small amount of contrast is injected. IMPRESSION: 12 seconds of fluoroscopy time was utilized. <Electronically signed by Raoul Narvaez > 11/17/20 1941
--- NOTE | 2020-11-19 00:13 | ECWPNPC ---
PATIENT NAME: DAVID STANLEY : 1965 GENDER: FEMALE VISIT DATE: 11/17/2020 DISCHARGE DATE: 11/17/20 1013 VISIT LOCKED DATE TIME: PHYSICIAN: SITA SIMMS MD RESOURCE: SITA SIMMS MD REASON FOR APPOINTMENT 1. LUMBAR EPIDURAL STERIOD INJECTION HISTORY OF PRESENT ILLNESS GENERAL: -. FALL RISK SCREENING: SCREENING : NO FALLS REPORTED IN THE LAST YEAR. PAIN SCREENING: PATIENT HAS A COMPLAINT OF ACUTE OR CHRONIC PAIN :YES LOCATION OF PAIN:LOW BACK, RIGHT HIP, THIGH(S) INTENSITY OF PAIN (SCALE OF 1 TO 10):7 4-9-10/10 WHAT DOES YOUR PAIN FEEL LIKE:ACHING, SHARP, OTHER "DULL ACHE" "CRAMP" DURATION:CONTINOUS, AWAKENS FROM SLEEP PAIN IS INCREASED BY:ACTIVITIES, PROLONGED STANDING PAIN IS DECREASED BY:USE OF PAIN MEDICATIONS PLAN/GOALS/TREATMENT/INTERVENTION/FOLLOW UP:SEE PLAN NURSING NOTE: -. PAIN CENTER INTAKE QUESTIONS: DO YOU HAVE A HISTORY OF MRSA? :NO DO YOU TAKE A BLOOD THINNERS? :NO DO YOU HAVE ANY BLEEDING DISORDERS? :NO ANY NEW NUMBNESS OR WEAKNESS IN YOUR LEGS OR ARMS? :NO ANY PACEMAKER,DEFIBRILLATOR, OR DORSAL COLUMN STIMULATOR? :NO DO YOU HAVE ANY RASHES OR OPEN SORES? :NO ARE YOU ALLERGIC TO IV DYE? :NO ARE YOU DIABETIC? :NO PRE DIABETIC, "DIET CONTROLLED" ANY NEW PROBLEMS WITH YOUR MEDICATIONS? :NO HAVE YOU RECEIVED A VACCINE IN THE PAST 30 DAYS? :NO DO YOU PLAN TO RECEIVE A VACCINE IN THE NEXT 21 DAYS? :NO DO YOU TAKE ANY IMMUNOSUPPRESSIVE MEDICATIONS? :NO ANY HISTORY OF SEIZURES? :NO ANY HISTORY OF CARDIAC ISSUES OR EVENTS? :NO DO YOU HAVE ANY KIDNEY OR LIVER DISEASE? :NO DO YOU HAVE SLEEP APNEA? :YES DO YOU WEAR A CPAP?NO ANY RECENT HEAD INJURY? :NO DO YOU HAVE ANY NEW INFECTIONS? :NO IS THERE A CHANCE YOU COULD BE ? :N/A ARE YOU BREAST FEEDING? :N/A WHEN DID YOU LAST EAT? : ----- WHEN DID YOU LAST DRINK? : ----- WHAT DID YOU LAST DRINK? : ----- NAME OF PERSON DRIVING YOU HOME? : MISAEL DO YOU HAVE ANY OTHER QUESTIONS OR CONCERNS? : NO CURRENT MEDICATIONS TAKING AMLODIPINE BESYLATE 10 MG TABLET 1 TABLET ORALLY ONCE A DAY TAKING BUSPIRONE HCL 10 MG TABLET 1 TABLET ORALLY ONCE A DAY TAKING IBUPROFEN 400 MG TABLET 2 TABLETS ORALLY ONCE A DAY TAKING LISINOPRIL 20 MG TABLET 1 TABLET ORALLY ONCE A DAY TAKING TIZANIDINE HCL 2 MG TABLET 1 TABLET NEEDED ORALLY THREE TIMES A DAY TAKING VOLTAREN 1 % GEL DIRECTED EXTERNALLY TAKING LIDOCAINE 5 % PATCH 1 PATCH REMOVE AFTER 12 HOURS EXTERNALLY ONCE A DAY TAKING TYLENOL EXTRA STRENGTH 500 MG TABLET 1 TABLET NEEDED ORALLY EVERY 6 HRS TAKING ROPINIROLE HCL 2 MG TABLET 1 TABLET 1 TO 3 HOURS BEFORE BEDTIME ORALLY ONCE A DAY TAKING OMEPRAZOLE 20 MG TABLET DELAYED RELEASE ORALLY BID NOT-TAKING VITAMIN D 48024 U TABLET 1 TABLET ORALLY ONCE A WEEK NOT-TAKING ACETAMINOPHEN 325 MG CAPSULE 1 CAPSULE NEEDED ORALLY EVERY 6 HRS NOT-TAKING HYDROCODONE-ACETAMINOPHEN 5-325 MG TABLET 1 TABLET NEEDED ORALLY EVERY 6 HRS NOT-TAKING DICLOFENAC 18 MG CAPSULE 1 CAPSULE NEEDED ORALLY THREE TIMES A DAY NOT-TAKING ATORVASTATIN CALCIUM 20 MG TABLET 1 TABLET ORALLY ONCE A DAY NOT-TAKING ROPINIROLE HCL 1 MG TABLET ORALLY NOT-TAKING KEFLEX 500 MG CAPSULE 1 CAPSULE ORALLY EVERY 12 HRS MEDICATION LIST REVIEWED AND RECONCILED WITH THE PATIENT PAST MEDICAL HISTORY ANXIETY ARTHRITIS GERD HYPERLIPIDEMIA HYPERTENSION LOW BACK PAIN NEUROMUSCULAR DISORDEER HEADACHE MODERNA 1ST: 07/21/2020 2ND: 10/07/2020 ALLERGIES N.K.D.A. SOCIAL HISTORY GENERAL: TOBACCO USE ARE YOU A:NONSMOKER LATEX QUESTIONNAIRE LATEX ALLERGY : HAVE YOU EVER DEVELOPED ANY TYPE OF REACTION AFTER HANDLING LATEX PRODUCTS SUCH RUBBER GLOVES, CONDOMS, DIAPHRAGMS, BALLOONS, SOCKS, OR UNDERWEAR?NO LATEX ALLERGY : HAVE YOU EVER DEVELOPED ANY TYPE OF REACTION DURING OR AFTER DENTAL APPOINTMENT, VAGINAL/RECTAL EXAMINATION, SURGICAL PROCEDURE, OR ANY OTHER EXPOSURE?NO LATEX RISK : HAVE YOU EVER HAD ANY DIFFICULTY BREATHING OR HIVES AFTER EATING OR HANDLING ANY FRUITS, OR VEGETABLES; SUCH KIWI, BANANAS, STONE FRUITS, OR CHESTNUTSNO LATEX RISK : DO YOU HAVE A PREVIOUS PERSONAL HISTORY OF MORE THAN NINE SURGERIES, SPINA BIFIDA, OR REPEATED CATHERIZATIONS? NO LATEX RISK : ARE YOU FREQUENTLY EXPOSED TO LATEX PRODUCTS IN YOUR OCCUPATION?NO DATE ASKED : 11/16/2020 ALCOHOL USE: YES. ALCOHOL SCREENING DID YOU HAVE A DRINK CONTAINING ALCOHOL IN THE PAST YEAR?YES HOW OFTEN DID YOU HAVE A DRINK CONTAINING ALCOHOL IN THE PAST YEAR?MONTHLY OR LESS (1 POINT) HOW MANY DRINKS DID YOU HAVE ON A TYPICAL DAY WHEN YOU WERE DRINKING IN THE PAST YEAR?3 OR 4 (1 POINT) POINTS2 INTERPRETATIONNEGATIVE RECREATIONAL DRUG USE DRUG USE?NO LEARNING BARRIERS / SPECIAL NEEDS CHANGE FROM LAST VISIT?NO BARRIERS TO LEARNING?NO HEARING IMPAIRED?NO VISION IMPAIRED?YES :CORRECTIVE LENSES COGNITIVELY IMPAIRED?NO READINESS TO LEARN?YES LEARNING PREFERENCES?NO LEARNING CAPABILITIES PRESENT?YES EMOTIONAL BARRIERS?YES COMMENTS ANXIETY SPECIAL DEVICES?YES :CANE, WALKER NEEDED COMPOUNDING ASSISTANT NEEDED?NO VITAL SIGNS WT 180.0 LBS, WT-KG 81.65 KG, HT 64 IN, BMI 30.89 INDEX, BP 128/60 MM HG, HR 80 /MIN, RR 18 /MIN, TEMP 97.8 F, OXYGEN SAT % 98%, SAFE IN ENV? (Y/N) Y, NA INITIALS AW 0838, REVIEWED BY: OXANA. EXAMINATION GENERAL: A HISTORY AND PHYSICAL EXAM ON THE PATIENT WAS DONE ON 11/02/2020 (DATE OF ORIGINAL ASSESSMENT) IN PREPARATION OF SURGERY/PROCEDURE. I HAVE NOW REASSESSED THIS PATIENT'S HEALTH STATUS AND PERFORMED AN UPDATED EXAM TODAY. ALL CHANGES IN THE PATIENT'S HISTORY, PHYSICAL EXAM, PRE-EXISTING CONDITONS, AND INDICATIONS/CONTRAINDICATIONS TO THE PLANNED PROCEDURE AND ANESTHESIA ARE DOCUMENTED AND EVALUATED BELOW. I ATTEST TO THE ADEQUACY AND APPROPRIATENESS OF MY ASSESSMENT, AND CONFIRM THE NECESSITY FOR THE PLANNED PROCEDURE. THE PATIENT IS ALERT, ORIENTED TIMES THREE AND COOPERATIVE. LUNGS ARE CLEAR TO AUSCULTATION. HEART SHOWS REGULAR RHYTHM, NO MURMURS AND NO GALLOPS. ASSESSMENTS RADICULOPATHY, LUMBAR REGION - M54.16 (PRIMARY) TREATMENT RADICULOPATHY, LUMBAR REGION [facility] FLUORO GUIDE SPINE INJECTION (PAIN)[id number] COMPLETION OF PROCEDURAL VISIT WHEN MEETS [id number],TOM 11/17/2020 10:35:21 AM > CRITERIA MET AT 1010 SALINE [id number],TOM 11/17/2020 10:38:23 AM > 0850 - 20G IV ACCESS OBTAINED IN LAC ON FIRST ATTEMPT. PATIENT TOLERATED WELL MEDICATION: PAIN OXYCODONE HCL TAB 10MG [id number],JAMIE L 11/17/2020 8:45:49 AM > VERIFIED. NATE BAILEY 11/17/2020 8:47:31 AM > ADMINISTERED MEDICATION: PAIN VALIUM TAB 10MG ORALLY (DIAZEPAM)[id number],JAMIE L 11/17/2020 8:46:06 AM > VERIFIED. NATE BAILEY 11/17/2020 8:47:55 AM > ADMINISTERED OTHERS NOTES: 11/16/20 PAT COMPLETED. Trevon PENA, CLEAT THROWER. PROCEDURES PAIN NURSING RECORD PROCEDURE IN ROOM 0920 , PHYSICIAN IN ROOM 0949 , START 0953 , FINISH 0957 , PHYSICIAN OUT OF ROOM 0959 , OUT OF ROOM 1005 , ECG NORMAL SINUS , PATIENT SHIELDED NO , SAFETY STRAP YES , PREP BETADINE Riddhi BAILEY RN, DRESSING TEGADERM Riddhi BAILEY RN LOC: 1. ALERT, ORIENTEDLYNN TOM 11/17/2020 9:33:37 AM > COLOR: 1. PINKLYNN TOM 11/17/2020 9:33:48 AM > SKIN: 1. WARM, DRYLYNN TOM 11/17/2020 9:33:57 AM > POSITION: 1. PRONELYNN TOM 11/17/2020 9:34:05 AM > VITALS: 0920 - HR 73, 137/91, 96%, R14 0935 - HR 64, 90/60, 95%, R14 0950 - HR 63, 91/44 DR NOTIFIED, 94%, R14 1008 - EXIT VITALS HR 64, 101/50, 97%, R14 PT ASYMPTOMATIC NOTES Riddhi BAILEY RN, Riddhi BAILEY RN COMPLETION OF PROCEDURE APPOINTMENT: POST PAIN 4, DRESSING SITE DRY AND INTACT, IV DISCONTINUED, SITE CLEAR, CATHETER INTACT, GAIT STEADY, TEACHING COMPLETED, PATIENT ACKNOWLEDGES UNDERSTANDING YES, PROCEDURE APPOINTMENT COMPLETED AT 1010 PRE PROCEDURE DIAGNOSIS LUMBAR DISC DISORDER WITH RADICULOPATHY POST PROCEDURE DIAGNOSIS LUMBAR DISC DISORDER WITH RADICULOPATHY PROCEDURE LUMBAR EPIDURAL STEROID INJECTION UNDER FLUOROSCOPIC GUIDANCE SURGEON DR. SITA SIMMS FLIGHT AGENT NONE ANESTHESIA LOCAL PRE PROCEDURE NOTE THE PATIENT HAS A HISTORY OF CHRONIC LOW BACK PAIN. I EVALUATED THE PATIENT AND REVIEWED THE CHART. I WENT OVER THE RISKS, ALTERNATIVES, AND BENEFITS ASSOCIATED WITH THIS PROCEDURE. THE PATIENT WOULD LIKE TO PROCEED AND GIVE CONSENT TO PERFORMED THE PROCEDURE. THE PATIENT DENIES UNEXPLAINABLE WEIGHT LOSS, FEVER, CHILLS, OR NEW CHANGES IN URINARY OR BOWEL CONTROL. THE PATIENT IS COVID-19 NEGATIVE DESCRIPTION OF PROCEDURE THE PATIENT WAS BROUGHT TO THE PROCEDURE ROOM AND PLACED IN THE PRONE POSITION. THE LUMBOSACRAL AREA WAS CLEANED WITH BETADINE SOLUTION AND DRAPED ASEPTICALLY. THE PROCEDURE WAS DONE UNDER STERILE CONDITIONS. A TIMEOUT WAS PERFORMED WHERE THE CONSENTED SITE WAS VERIFIED WITH EVERYONE IN THE ROOM. UNDER FLUOROSCOPIC GUIDANCE, THE TARGET POINT WAS SELECTED AT THE INTERLAMINAR LEVEL OF L5-S1. I CONFIRMED AGAIN THE SITE OF TARGET. LIDOCAINE WAS USED TO NUMB THE SKIN AND THE SUBCUTANEOUS TISSUE BELOW IT. EPIDURAL TUOHY NEEDLE, 17-GAUGE, WAS ADVANCED UNDER FLUOROSCOPIC GUIDANCE AND FOLLOWING PATIENT FEEDBACK UNTIL THE EPIDURAL SPACE WAS REACHED 9 CM DEEP INTO THE SKIN BY THE LOSS OF RESISTANCE TECHNIQUE. ISOVUE-M DYE 30%, 0.25 ML, WAS INJECTED SHOWING ADEQUATE SPREAD OF THE DYE. THEN, A SOLUTION OF 3 ML OF NORMAL SALINE WITH DEPO-MEDROL 40 MG WAS INJECTED SLOWLY FOLLOWING PATIENT FEEDBACK. THE MEDICATIONS WERE VERIFIED WITH THE NURSE. THERE WAS NO EVIDENCE OF BLOOD, PARESTHESIA OR CEREBROSPINAL FLUID DURING THE PROCEDURE. THE PATIENT WAS SENT TO THE RECOVERY ROOM. THE PATIENT WAS MOVING THE EXTREMITIES AND DOING WELL. THERE WERE NO COMPLICATIONS DURING THE PROCEDURE. ESTIMATED BLOOD LOSS WAS LESS THAN 5 ML. FLUOROSCOPY TIME WAS 12 SECONDS POST PROCEDURE NOTE THE PATIENT WILL BE SEEN IN A FOLLOW UP IN THE NEXT FEW WEEKS. I AM LOOKING FOR LONG LASTING RELIEF FOR THE PATIENT WITH THIS INTERVENTION. INSTRUCTIONS WERE GIVEN, QUESTIONS WERE ANSWERED, AND THE PATIENT EXPRESSED UNDERSTANDING AND AGREES WITH THE PLAN. I, ANKUR PADRON, DOCUMENTED THE ABOVE INFORMATION ACTING A SCRIBE FOR DR. SIMMS. 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 IT IS NOT A COPY OF THE [employer] PROGRESS NOTE. [facility]
== END ==
LOC: M PAIN 08:30
PROVIDERS: ATTEND Anesthesiology
DX: M54.16 Radiculopathy, lumbar region (principal); R73.03 Prediabetes; G47.30 Sleep apnea, unspecified; K21.9 Gastro-esophageal reflux disease without esophagitis; Z86.59 Personal history of other mental and behavioral disorders; Z79.899 Other long term (current) drug therapy
CPT/HCPCS: 62323; J1030; Q9967

== ENCOUNTER → 2021-02-02 | Outpatient (CLI) | payer OTHER ==
[~2021-02-02] MED LIST changes: -ISOVUE-M 300 61% 15ML VIAL As Ordered ONE; -LIDOCAINE 1% SDV 30ML VIAL As Ordered ONE; -diazePAM 5MG TABLET As Ordered ONE; -methylPREDNISolone SUSP 40MG/ML 1ML VIAL (DEPO MEDROL) As Ordered ONE; -oxyCODONE 5MG TAB As Ordered ONE
== END ==
LOC: M PAIN 11:15
PROVIDERS: ATTEND Anesthesiology
DX: M51.17 Intervertebral disc disorders with radiculopathy, lumbosacral region (principal); G89.29 Other chronic pain; R73.03 Prediabetes; G47.30 Sleep apnea, unspecified; K21.9 Gastro-esophageal reflux disease without esophagitis; Z86.59 Personal history of other mental and behavioral disorders; Z79.899 Other long term (current) drug therapy

== ENCOUNTER → 2021-02-07 | Outpatient (CLI) | payer OTHER | LOC: M OUTALCOH 07:43 | PROVIDERS: ATTEND Psychiatry & Neurology Psychiatry | DX: F10.10 Alcohol abuse, uncomplicated (principal) ==

== ENCOUNTER 2021-02-11 09:17 | Outpatient (RCR) | payer OTHER | END 2021-02-13 | LOC: M OUTALCOH 09:17 | PROVIDERS: ATTEND Psychiatry & Neurology Psychiatry | DX: F10.10 Alcohol abuse, uncomplicated (principal); F12.10 Cannabis abuse, uncomplicated ==

== ENCOUNTER → 2021-03-15 | Outpatient (RCR) | payer OTHER | LOC: M OUTALCOH 02-15 14:59 | PROVIDERS: ATTEND Psychiatry & Neurology Psychiatry | DX: F10.10 Alcohol abuse, uncomplicated (principal); F12.10 Cannabis abuse, uncomplicated | CPT/HCPCS: 90834; H0038 ==

== ENCOUNTER → 2021-03-16 | Outpatient (CLI) | payer OTHER | LOC: M LABSMTC 10:27 | PROVIDERS: ATTEND Anesthesiology | DX: Z01.818 Encounter for other preprocedural examination (principal); Z11.52 Encounter for screening for COVID-19 ==

== ENCOUNTER → 2021-03-21 | Outpatient (CLI) | payer OTHER ==
[~2021-03-21] MED LIST changes: +ISOVUE-M 300 61% 15ML VIAL As Ordered ONE; +LIDOCAINE 1% SDV 30ML VIAL As Ordered ONE; +diazePAM 5MG TABLET As Ordered ONE; +methylPREDNISolone SUSP 40MG/ML 1ML VIAL (DEPO MEDROL) As Ordered ONE; +oxyCODONE 5MG TAB As Ordered ONE
--- NOTE | 2021-03-21 12:34 | REP ---
INDICATION: LUMBAR EPIDURAL STEROID INJECTION. COMPARISON: None. TECHNIQUE: Three C-arm views lower lumbar spine. FINDINGS: A needle is seen in the region of the lumbar spine. IMPRESSION: 8 seconds of fluoroscopy time was utilized. <Electronically signed by Raoul Narvaez > 03/21/21 [id number]
== END ==
LOC: M PAIN 11:20
PROVIDERS: ATTEND Anesthesiology
DX: M51.16 Intervertebral disc disorders with radiculopathy, lumbar region (principal); G47.30 Sleep apnea, unspecified; K21.9 Gastro-esophageal reflux disease without esophagitis; Z86.59 Personal history of other mental and behavioral disorders; Z79.899 Other long term (current) drug therapy
CPT/HCPCS: 62323; J1030; Q9967

== ENCOUNTER 2021-04-13 10:00 | Outpatient (RCR) | payer OTHER ==
[~2021-04-13 10:00] MED LIST changes: -ISOVUE-M 300 61% 15ML VIAL As Ordered ONE; -LIDOCAINE 1% SDV 30ML VIAL As Ordered ONE; -diazePAM 5MG TABLET As Ordered ONE; -methylPREDNISolone SUSP 40MG/ML 1ML VIAL (DEPO MEDROL) As Ordered ONE; -oxyCODONE 5MG TAB As Ordered ONE
== END 2021-04-15 ==
LOC: M OUTALCOH 10:00
PROVIDERS: ATTEND Psychiatry & Neurology Psychiatry
DX: F10.10 Alcohol abuse, uncomplicated (principal); F12.10 Cannabis abuse, uncomplicated

== ENCOUNTER 2021-05-13 11:00 | Outpatient (RCR) | payer OTHER | END 2021-05-16 | LOC: M OUTALCOH 11:00 | PROVIDERS: ATTEND Psychiatry & Neurology Psychiatry | DX: F10.10 Alcohol abuse, uncomplicated (principal); F12.10 Cannabis abuse, uncomplicated ==

== ENCOUNTER → 2021-05-23 | Outpatient (CLI) | payer OTHER | LOC: M PAIN 10:00 | PROVIDERS: ATTEND Nurse Practitioner Family | DX: M51.16 Intervertebral disc disorders with radiculopathy, lumbar region (principal); G89.29 Other chronic pain; G47.30 Sleep apnea, unspecified; K21.9 Gastro-esophageal reflux disease without esophagitis; Z86.59 Personal history of other mental and behavioral disorders; Z79.899 Other long term (current) drug therapy ==

== ENCOUNTER → 2021-06-20 | Outpatient (CLI) | payer OTHER | LOC: M PAIN 14:00 | PROVIDERS: ATTEND Nurse Practitioner Family | DX: M51.16 Intervertebral disc disorders with radiculopathy, lumbar region (principal); G89.29 Other chronic pain; G47.30 Sleep apnea, unspecified; K21.9 Gastro-esophageal reflux disease without esophagitis; Z86.59 Personal history of other mental and behavioral disorders; Z79.899 Other long term (current) drug therapy ==

== ENCOUNTER → 2021-10-31 | Outpatient (CLI) | payer OTHER | LOC: M LABSMTC 09:14 | PROVIDERS: ATTEND Anesthesiology | DX: Z01.818 Encounter for other preprocedural examination (principal); Z11.52 Encounter for screening for COVID-19 ==

== ENCOUNTER → 2021-11-01 | Outpatient (CLI) | payer OTHER ==
[~2021-11-01] MED LIST changes: +ISOVUE-M 300 61% 15ML VIAL As Ordered ONE; +LIDOCAINE 1% SDV 30ML VIAL As Ordered ONE; +diazePAM 5MG TABLET As Ordered ONE; +methylPREDNISolone SUSP 40MG/ML 1ML VIAL (DEPO MEDROL) As Ordered ONE; +oxyCODONE 5MG TAB As Ordered ONE
== END ==
LOC: M PAIN 10:00
PROVIDERS: ATTEND Anesthesiology
DX: M51.16 Intervertebral disc disorders with radiculopathy, lumbar region (principal); G89.29 Other chronic pain; G47.30 Sleep apnea, unspecified; K21.9 Gastro-esophageal reflux disease without esophagitis; Z86.59 Personal history of other mental and behavioral disorders; Z79.899 Other long term (current) drug therapy
CPT/HCPCS: 62323; J1030; Q9967

== ENCOUNTER → 2021-11-15 | Outpatient (CLI) | payer OTHER ==
[~2021-11-15] MED LIST changes: -ISOVUE-M 300 61% 15ML VIAL As Ordered ONE; -LIDOCAINE 1% SDV 30ML VIAL As Ordered ONE; -diazePAM 5MG TABLET As Ordered ONE; -methylPREDNISolone SUSP 40MG/ML 1ML VIAL (DEPO MEDROL) As Ordered ONE; -oxyCODONE 5MG TAB As Ordered ONE
== END ==
LOC: M PLAIMG 06:42
PROVIDERS: ATTEND Student in an Organized Health Care Education/Training Program
DX: M54.16 Radiculopathy, lumbar region (principal)

== ENCOUNTER → 2021-11-17 | Outpatient (CLI) | payer OTHER | LOC: M PLAIMG 06:47 | PROVIDERS: ATTEND Student in an Organized Health Care Education/Training Program | DX: S83.207D Unspecified tear of unspecified meniscus, current injury, left knee, subsequent encounter (principal); M22.42 Chondromalacia patellae, left knee; M22.41 Chondromalacia patellae, right knee; S83.206A Unspecified tear of unspecified meniscus, current injury, right knee, initial encounter ==

== ENCOUNTER → 2021-11-18 | Outpatient (CLI) | payer OTHER | LOC: M PLAIMG 06:42 | PROVIDERS: ATTEND Student in an Organized Health Care Education/Training Program | DX: M25.551 Pain in right hip (principal); M25.552 Pain in left hip ==

== ENCOUNTER → 2021-12-15 | Outpatient (CLI) | payer OTHER | LOC: M PAIN 10:30 | PROVIDERS: ATTEND Nurse Practitioner Family | DX: M51.16 Intervertebral disc disorders with radiculopathy, lumbar region (principal); G89.29 Other chronic pain; K21.9 Gastro-esophageal reflux disease without esophagitis; I10 Essential (primary) hypertension; Z86.59 Personal history of other mental and behavioral disorders; Z79.899 Other long term (current) drug therapy ==

== ENCOUNTER → 2022-01-24 | Outpatient (CLI) | payer OTHER | LOC: M PAIN 12:00 | PROVIDERS: ATTEND Anesthesiology | DX: M51.16 Intervertebral disc disorders with radiculopathy, lumbar region (principal); G89.29 Other chronic pain; K21.9 Gastro-esophageal reflux disease without esophagitis; I10 Essential (primary) hypertension; Z86.59 Personal history of other mental and behavioral disorders; Z79.899 Other long term (current) drug therapy ==

== ENCOUNTER → 2022-03-01 | Outpatient (CLI) | payer OTHER | LOC: M PAIN 10:45 | PROVIDERS: ATTEND Anesthesiology | DX: M51.16 Intervertebral disc disorders with radiculopathy, lumbar region (principal); G89.29 Other chronic pain; K21.9 Gastro-esophageal reflux disease without esophagitis; I10 Essential (primary) hypertension; Z86.59 Personal history of other mental and behavioral disorders; Z79.899 Other long term (current) drug therapy ==

== ENCOUNTER → 2022-03-13 | Outpatient (CLI) | payer OTHER | LOC: M LABSMTC 10:15 | PROVIDERS: ATTEND Anesthesiology | DX: Z01.812 Encounter for preprocedural laboratory examination (principal); Z11.52 Encounter for screening for COVID-19 ==

== ENCOUNTER → 2022-03-17 | Outpatient (CLI) | payer OTHER ==
[~2022-03-17] MED LIST changes: +BUPIVACAINE HCL 0.25% 30ML VIAL As Ordered ONE; +ISOVUE-M 300 61% 15ML VIAL As Ordered ONE; +LIDOCAINE 1% SDV 30ML VIAL As Ordered ONE; +diazePAM 5MG TABLET As Ordered ONE; +oxyCODONE 5MG TAB As Ordered ONE
== END ==
LOC: M PAIN 11:00
PROVIDERS: ATTEND Anesthesiology
DX: M51.16 Intervertebral disc disorders with radiculopathy, lumbar region (principal); G89.29 Other chronic pain; G47.30 Sleep apnea, unspecified; K21.9 Gastro-esophageal reflux disease without esophagitis; I10 Essential (primary) hypertension; Z86.59 Personal history of other mental and behavioral disorders; Z79.899 Other long term (current) drug therapy

== ENCOUNTER → 2022-04-18 | Outpatient (CLI) | payer OTHER ==
[~2022-04-18] MED LIST changes: -BUPIVACAINE HCL 0.25% 30ML VIAL As Ordered ONE; -ISOVUE-M 300 61% 15ML VIAL As Ordered ONE; -LIDOCAINE 1% SDV 30ML VIAL As Ordered ONE; -diazePAM 5MG TABLET As Ordered ONE; -oxyCODONE 5MG TAB As Ordered ONE
== END ==
LOC: M PAIN 11:30
PROVIDERS: ATTEND Nurse Practitioner Family
DX: M51.16 Intervertebral disc disorders with radiculopathy, lumbar region (principal); G89.29 Other chronic pain; G47.30 Sleep apnea, unspecified; K21.9 Gastro-esophageal reflux disease without esophagitis; I10 Essential (primary) hypertension; Z86.59 Personal history of other mental and behavioral disorders; Z79.899 Other long term (current) drug therapy

== ENCOUNTER 2023-07-20 09:29 | Day surgery (SDC) | payer OTHER ==
[~2023-07-20] VITALS: Ht 162.6 cm; Wt 77.6 kg
[~2023-07-20 09:29] MED LIST changes: +CELE1CAP4 PO; +NS 1,000 ML IV ONE; -ROPI1TAB3 PO; +ROPI1TAB73 PO
[2023-07-20 10:50] VITALS: TEMP 96.6
[2023-07-20] MEDS ORDERED: propofoL 500 MG/50 ML VIAL As Ordered ONE (11:12)
[2023-07-20 11:15] VITALS: BP 120/58; O2SAT 100
== END 2023-07-20 11:27 | disposition home or self-care (01) ==
LOC: M OPP 09:29
PROVIDERS: ATTEND Internal Medicine Gastroenterology
DX: Z12.11 Encounter for screening for malignant neoplasm of colon (principal); Z86.010 Personal history of colon polyps; Z80.0 Family history of malignant neoplasm of digestive organs; K64.8 Other hemorrhoids; K44.9 Diaphragmatic hernia without obstruction or gangrene; R12 Heartburn; R11.10 Vomiting, unspecified; E11.9 Type 2 diabetes mellitus without complications; G47.9 Sleep disorder, unspecified; I10 Essential (primary) hypertension; Z79.02 Long term (current) use of antithrombotics/antiplatelets; Z79.1 Long term (current) use of non-steroidal anti-inflammatories (NSAID); Z79.899 Other long term (current) drug therapy

== ENCOUNTER → 2024-04-02 | Outpatient (REF) ==
[~2024-04-02] MED LIST changes: -NS 1,000 ML IV ONE
== END ==
LOC: M PLAIMG 14:24
PROVIDERS: ATTEND Internal Medicine
DX: M17.12 Unilateral primary osteoarthritis, left knee (principal); M16.12 Unilateral primary osteoarthritis, left hip

== ENCOUNTER → 2024-05-09 | Outpatient (CLI) | payer OTHER ==
[2024-05-09 15:37] LABS: BASO # 0.1 10^3/uL (0.0-0.2); BASO % 0.6 % (0.0-1.0); EOS # 0.5 10^3/uL (0.0-0.5); EOS % 4.6 % (0.0-3.0); HEMATOCRIT 41.7 % (36.0-47.0); HEMOGLOBIN 13.9 g/dl (12.0-15.5); LYMPH # 2.7 10^3/uL (1.5-5.0); LYMPH % 24.3 % (24.0-44.0); MEAN CORPUSCULAR HEMOGLOBIN 29.1 pg (27.0-33.0); MEAN CORPUSCULAR HGB CONC 33.3 g/dl (32.0-36.5); MEAN CORPUSCULAR VOLUME 87.2 fl (80.0-96.0); MONO # 0.9 10^3/uL (0.0-0.8); MONO % 7.8 % (2.0-8.0); NEUTROPHILS # 6.9 10^3/uL (1.5-8.5); NEUTROPHILS % 62.3 % (36.0-66.0); PLATELET COUNT, AUTOMATED 351 10^3/uL (150-450); RED BLOOD COUNT 4.78 10^6/uL (4.00-5.40); WHITE BLOOD COUNT 11.1 10^3/uL (4.0-10.0)
[2024-05-09 15:57] LABS: ALBUMIN 3.9 G/DL (3.2-5.2)
[2024-05-09 16:04] LABS: PERCENT SATURATION 13.5 % (13.2-45.0)
[2024-05-09 16:05] LABS: FERRITIN 34.6 NG/ML (7.3-270.7)
== END ==
LOC: M LAB 15:09
PROVIDERS: ATTEND Orthopaedic Surgery
DX: M25.552 Pain in left hip (principal); M16.9 Osteoarthritis of hip, unspecified